=== PATIENT | female | born 1950 | race Hispanic/Latino ===

== ENCOUNTER → 2017-05-14 | Outpatient (CLI) | payer OTHER ==
[2017-05-14 07:41] LABS: HEMATOCRIT 37.8 % (36-48); LYMPHOCYTES % (AUTO) 26.2 % (21.0-51.0); MEAN CORPUSCULAR HEMOGLOBIN 31.3 pg (27.0-33.0); MEAN CORPUSCULAR HGB CONC 33.6 g/dL (32.0-36.0); MEAN CORPUSCULAR VOLUME 93.1 fL (79-99); MONOCYTES % (AUTO) 6.7 % (3.0-13.0); NEUTROPHILS % (AUTO) 63.1 % (40.0-77.0); PLATELET COUNT (AUTO) 281 K/uL (130-400); RED BLOOD CELL COUNT(AUTO) 4.06 MIL/uL (4.00-5.50); RED CELL DISTRIBUTION WIDTH 13.8 % (11.0-15.5); WHITE BLOOD COUNT (AUTO) 9.2 K/uL (4.8-10.8)
[2017-05-14 07:50] LABS: HEMOGLOBIN A1C 5.8 % (4.0-6.0)
[2017-05-14 08:04] LABS: ALBUMIN 3.6 g/dL (3.5-5.0); BILIRUBIN,TOTAL 0.3 mg/dL (0.2-1.0); CREATININE 0.7 mg/dL (0.5-1.5); THYROID STIMULATING HORMONE 2.27 uIU/mL (0.36-3.74); TOTAL PROTEIN, SERUM 7.7 g/dL (6.0-8.3)
== END | disposition home or self-care (01) ==
LOC: LAB 07:10
PROVIDERS: ATTEND Internal Medicine Nephrology
DX: I10 Essential (primary) hypertension (principal); E78.5 Hyperlipidemia, unspecified; D64.9 Anemia, unspecified; R73.09 Other abnormal glucose
CPT/HCPCS: 36415; 80053; 80061; 83036; 84443; 85025

== ENCOUNTER 2017-06-20 07:02 | Emergency (ER) | payer OTHER ==
[2017-06-20 08:10] LABS: BASOPHILS % (AUTO) 0.2 % (0.0-5.0); EOSINOPHILS % (AUTO) 0.9 % (0.0-8.0); HEMATOCRIT 38.7 % (36-48); LYMPHOCYTES % (AUTO) 4.6 % (21.0-51.0); MEAN CORPUSCULAR HEMOGLOBIN 31.6 pg (27.0-33.0); MEAN CORPUSCULAR HGB CONC 34.2 g/dL (32.0-36.0); MEAN CORPUSCULAR VOLUME 92.3 fL (79-99); NEUTROPHILS % (AUTO) 91.3 % (40.0-77.0); PLATELET COUNT (AUTO) 292 K/uL (130-400); RED BLOOD CELL COUNT(AUTO) 4.19 MIL/uL (4.00-5.50); RED CELL DISTRIBUTION WIDTH 13.5 % (11.0-15.5); WHITE BLOOD COUNT (AUTO) 15.8 K/uL (4.8-10.8)
[2017-06-20 08:17] LABS: CREATININE 0.7 mg/dL (0.5-1.5); POTASSIUM 4.3 mmol/L (3.5-5.1)
[2017-06-20 08:23] LABS: ALBUMIN 3.7 g/dL (3.5-5.0); BILIRUBIN,TOTAL 0.4 mg/dL (0.2-1.0); TOTAL PROTEIN, SERUM 8.1 g/dL (6.0-8.3)
[2017-06-20 08:39] LABS: APPEARANCE,URINE Cloudy (CLEAR); BILIRUBIN,URINE Negative (NEGATIVE); COLOR,URINE Yellow (YELLOW); GLUCOSE, URINE (UA) Negative (NEGATIVE); KETONES,URINE Negative (NEGATIVE); LEUKOCYTE ESTERASE ,URINE Moderate (NEGATIVE); NITRATE,URINE Negative (NEGATIVE); OCCULT BLOOD,URINE Small (NEGATIVE); PH,URINE 5.5 (5.0-8.0); PROTEIN,URINE Trace (NEGATIVE)
[2017-06-20 08:43] LABS: BACTERIA,URINE Few /HPF (None Seen); RBC,URINE 0-1 /HPF (0-1)
[2017-06-20 08:44] LABS: SQUAMOUS EPITHELIAL CELL,UR Few /LPF (0-2)
[2017-06-20] MEDS ORDERED: LEVOFLOXACIN 500 MG TABLET ONE (09:27)
== END 2017-06-20 09:45 | disposition home or self-care (01) ==
LOC: EDH 07:02
DX: A09 Infectious gastroenteritis and colitis, unspecified (principal); N39.0 Urinary tract infection, site not specified; I10 Essential (primary) hypertension
CPT/HCPCS: 36415; 80053; 81001; 82270; 85025; 87046; 87088; 87177; 87205; 87804

== ENCOUNTER → 2017-09-03 | Outpatient (CLI) | payer OTHER ==
[2017-09-03 08:20] LABS: BASOPHILS % (AUTO) 1.2 % (0.0-5.0); EOSINOPHILS % (AUTO) 3.6 % (0.0-8.0); HEMATOCRIT 36.1 % (36-48); LYMPHOCYTES % (AUTO) 27.6 % (21.0-51.0); MEAN CORPUSCULAR HEMOGLOBIN 31.9 pg (27.0-33.0); MEAN CORPUSCULAR HGB CONC 34.5 g/dL (32.0-36.0); MEAN CORPUSCULAR VOLUME 92.4 fL (79-99); MONOCYTES % (AUTO) 8.9 % (3.0-13.0); NEUTROPHILS % (AUTO) 58.7 % (40.0-77.0); PLATELET COUNT (AUTO) 293 K/uL (130-400); WHITE BLOOD COUNT (AUTO) 6.9 K/uL (4.8-10.8)
[2017-09-03 08:36] LABS: HEMOGLOBIN A1C 5.7 % (4.0-6.0)
[2017-09-03 08:45] LABS: ALBUMIN 3.6 g/dL (3.5-5.0); BILIRUBIN,TOTAL 0.4 mg/dL (0.2-1.0); CREATININE 0.6 mg/dL (0.5-1.5); POTASSIUM 4.1 mmol/L (3.5-5.1); THYROID STIMULATING HORMONE 2.01 uIU/mL (0.36-3.74); TOTAL PROTEIN, SERUM 7.8 g/dL (6.0-8.3)
== END | disposition home or self-care (01) ==
LOC: LAB 07:22
PROVIDERS: ATTEND Internal Medicine Nephrology
DX: I10 Essential (primary) hypertension (principal); E78.5 Hyperlipidemia, unspecified; D64.9 Anemia, unspecified; E55.9 Vitamin D deficiency, unspecified; R73.09 Other abnormal glucose
CPT/HCPCS: 36415; 80053; 80061; 82306; 83036; 84443; 85025

== ENCOUNTER 2018-01-04 17:51 | Inpatient (IN) | payer OTHER, MEDICARE ==
[~2018-01-04] VITALS: Ht 152.4 cm; Wt 71.4 kg
[2018-01-04] MEDS ORDERED: LEVOFLOXACIN 750 MG/D5W 150 ML 150 ML ONE (18:56)
[2018-01-04] MEDS ORDERED: PREDNISONE 20 MG TABLET ONE (18:56)
[2018-01-04] MEDS ORDERED: METHYLPREDNISOLONE SOD SUCC 125MG/2ML VIAL ONE (18:56)
[2018-01-04] MEDS ORDERED: IPRATROPIUM/ALBUTEROL SULFATE 3 ML SOLUTION IH ONE (18:57)
[2018-01-04 19:24] LABS: CREATININE 0.8 mg/dL (0.5-1.5)
[2018-01-04 19:25] LABS: EOSINOPHILS % (AUTO) 4.4 % (0.0-8.0); HEMATOCRIT 39.8 % (36-48); LYMPHOCYTES % (AUTO) 22.2 % (21.0-51.0); MEAN CORPUSCULAR HEMOGLOBIN 31.3 pg (27.0-33.0); MEAN CORPUSCULAR HGB CONC 33.4 g/dL (32.0-36.0); MEAN CORPUSCULAR VOLUME 93.8 fL (79-99); MONOCYTES % (AUTO) 7.4 % (3.0-13.0); NUCLEATED RED BLOOD CELLS 0.1 % (0.0-0.19); PLATELET COUNT (AUTO) 264 K/uL (130-400); RED BLOOD CELL COUNT(AUTO) 4.24 MIL/uL (4.00-5.50); WHITE BLOOD COUNT (AUTO) 10.2 K/uL (4.8-10.8)
[2018-01-04] MEDS ORDERED: ALBUTEROL SULFATE 0.083% 2.5 MG/3 ML INH IH ONE (20:48)
[2018-01-04 23:00] VITALS: BP 149/63
[2018-01-05] MEDS: LEVOFLOXACIN 500 MG/D5W 100 ML 100 ML IV SCH (02:30)
[2018-01-05] MEDS ORDERED: IPRATROPIUM/ALBUTEROL SULFATE 3 ML SOLUTION IH ONE (03:11)
[2018-01-05] MEDS ORDERED: SODIUM CHLORIDE 3% FOR INHALATION 4 ML/AMP VIAL.NEB IH ONE (03:12)
[2018-01-05 03:52] VITALS: BP 140/53
[2018-01-05 05:53] LABS: HEMATOCRIT 37.2 % (36-48); MEAN CORPUSCULAR HGB CONC 33.9 g/dL (32.0-36.0); MEAN CORPUSCULAR VOLUME 94.3 fL (79-99); PLATELET COUNT (AUTO) 303 K/uL (130-400); RED BLOOD CELL COUNT(AUTO) 3.95 MIL/uL (4.00-5.50); RED CELL DISTRIBUTION WIDTH 13.6 % (11.0-15.5); WHITE BLOOD COUNT (AUTO) 10.7 K/uL (4.8-10.8)
[2018-01-05 06:11] LABS: CREATININE 1.2 mg/dL (0.5-1.5); POTASSIUM 3.8 mmol/L (3.5-5.1)
[2018-01-05] MEDS: IPRATROPIUM/ALBUTEROL SULFATE 3 ML SOLUTION IH SCH ×5 (06:20→23:46)
[2018-01-05 07:00] VITALS: BP 146/65
[2018-01-05] MEDS: PANTOPRAZOLE SODIUM 40 MG TABLET.DR PO SCH (08:20)
[2018-01-05] MEDS: METHYLPREDNISOLONE SOD SUCC 40MG/ML 1ML IVP SCH ×2 (08:20→20:01)
[2018-01-05] MEDS: ENOXAPARIN SODIUM 30 MG/0.3 ML SQ SCH (08:21)
[2018-01-05] MEDS ORDERED: PREDNISONE 20 MG TABLET PO SCH (09:00)
[2018-01-05] MEDS: BUDESONIDE 0.25 MG/2 ML INH IH SCH ×2 (09:10→19:03)
[2018-01-05 11:00] VITALS: BP 150/103
[2018-01-05] MEDS ORDERED: METO-391 PO (11:36)
[2018-01-05] MEDS ORDERED: ASPI-1197 PO (11:41)
[2018-01-05] MEDS ORDERED: AMLO10TA6 PO (11:41)
[2018-01-05] MEDS ORDERED: OMEG-148 PO (11:41)
[2018-01-05] MEDS ORDERED: CHOL100046 PO (11:41)
[2018-01-05] MEDS ORDERED: LOSA50TA2 PO (11:41)
[2018-01-05 20:00] VITALS: BP 130/64
[2018-01-05] MEDS ORDERED: GLUCAGON 1MG KIT 1 MG ML IM PRN (21:00)
[2018-01-05] MEDS ORDERED: DEXTROSE 50%-WATER 50 ML DISP.SYRIN IV PRN (21:00)
[2018-01-05] MEDS ORDERED: GUAIFENESIN-CODEINE 5 ML SYRUP PO PRN (21:30)
[2018-01-05] MEDS: INSULIN HUMULIN R 100 UNIT/ML 3ML SQ SCH (21:33)
[2018-01-05] MEDS: FISH OIL 1000 MG/CAP PO SCH (21:40)
[2018-01-06] VITALS: BP 132/70
[2018-01-06] MEDS: LEVOFLOXACIN 500 MG/D5W 100 ML 100 ML IV SCH (02:36)
[2018-01-06 04:00] VITALS: BP 132/58
[2018-01-06] MEDS: INSULIN HUMULIN R 100 UNIT/ML 3ML SQ SCH (06:05)
[2018-01-06] MEDS: IPRATROPIUM/ALBUTEROL SULFATE 3 ML SOLUTION IH SCH (06:32)
[2018-01-06] MEDS: BUDESONIDE 0.25 MG/2 ML INH IH SCH (07:01)
[2018-01-06 08:00] VITALS: BP 163/60
[2018-01-06] MEDS: PNEUMOCOCCAL VACCINE POLYVALENT 0.5 ML/VIAL [PPV] IM SCH ×2 (08:15→08:33)
[2018-01-06] MEDS: METHYLPREDNISOLONE SOD SUCC 40MG/ML 1ML IVP SCH (08:30)
[2018-01-06] MEDS: FISH OIL 1000 MG/CAP PO SCH (08:30)
[2018-01-06] MEDS: PANTOPRAZOLE SODIUM 40 MG TABLET.DR PO SCH (08:30)
[2018-01-06] MEDS ORDERED: LOSARTAN 50 MG TABLET PO SCH (09:00)
[2018-01-06] MEDS ORDERED: ASPIRIN 81MG TAB.CHEW PO SCH (09:00)
[2018-01-06] MEDS ORDERED: METOPROLOL TARTRATE 50 MG TAB PO SCH (09:00)
[2018-01-06] MEDS ORDERED: AMLODIPINE BESYLATE 5 MG TAB PO SCH (09:00)
[2018-01-06] MEDS: ENOXAPARIN SODIUM 30 MG/0.3 ML SQ SCH (09:00)
[2018-01-06] MEDS ORDERED: **HM**Cholecalciferol (Vitamin D3) (Vitamin D) 1,000 UNIT PO SCH (09:00)
== END 2018-01-06 10:54 | disposition home or self-care (01) | DRG 202 ==
LOC: EDH 17:51 → EDHIP 21:30 → 3CH 22:33
PROVIDERS: ADMIT Internal Medicine Nephrology; ATTEND Internal Medicine Nephrology
PROC: 3E0234Z Introduction of Serum, Toxoid and Vaccine into Muscle, Percutaneous Approach (ICD-10-PCS; principal; 2018-01-04)
DX: J20.9 Acute bronchitis, unspecified (principal); J45.901 Unspecified asthma with (acute) exacerbation; Z68.30 Body mass index [BMI] 30.0-30.9, adult; E66.9 Obesity, unspecified; E78.5 Hyperlipidemia, unspecified; R73.9 Hyperglycemia, unspecified; Z91.018 Allergy to other foods; I10 Essential (primary) hypertension; Z23 Encounter for immunization; Z90.710 Acquired absence of both cervix and uterus; Z82.3 Family history of stroke; Z83.3 Family history of diabetes mellitus; Z82.49 Family history of ischemic heart disease and other diseases of the circulatory system; Z82.5 Family history of asthma and other chronic lower respiratory diseases
CPT/HCPCS: 36415; 71045; 80048; 82550; 82948; 84484; 85025; 85027; 87071; 87205; 87804; 90732; 93005; 94640; 94664; G0008; G0009; J1650; J1815; J1956; J2920; J2930; Q2038

== ENCOUNTER 2018-01-12 11:32 | Inpatient (IN) | payer OTHER, MEDICARE ==
[~2018-01-12] VITALS: Ht 152.4 cm; Wt 80.6 kg
[~2018-01-12 11:32] MED LIST: AMLO10TA6 PO; ASPI-1197 PO; CHOL100046 PO; LOSA50TA2 PO; METO-391 PO; OMEG-148 PO
[2018-01-12 12:30] LABS: BASOPHILS % (AUTO) 0.3 % (0.0-5.0); EOSINOPHILS % (AUTO) 4.6 % (0.0-8.0); HEMATOCRIT 41.6 % (36-48); LYMPHOCYTES % (AUTO) 19.6 % (21.0-51.0); MEAN CORPUSCULAR HEMOGLOBIN 31.2 pg (27.0-33.0); MEAN CORPUSCULAR HGB CONC 33.1 g/dL (32.0-36.0); MEAN CORPUSCULAR VOLUME 94.2 fL (79-99); MONOCYTES % (AUTO) 5.4 % (3.0-13.0); NEUTROPHILS % (AUTO) 70.1 % (40.0-77.0); PLATELET COUNT (AUTO) 337 K/uL (130-400); RED BLOOD CELL COUNT(AUTO) 4.41 MIL/uL (4.00-5.50); WHITE BLOOD COUNT (AUTO) 18.9 K/uL (4.8-10.8)
[2018-01-12 12:38] LABS: CREATININE 0.8 mg/dL (0.5-1.5); POTASSIUM 3.7 mmol/L (3.5-5.1)
[2018-01-12 12:46] LABS: ALBUMIN 3.1 g/dL (3.5-5.0); BILIRUBIN,TOTAL 0.4 mg/dL (0.2-1.0); TOTAL PROTEIN, SERUM 7.3 g/dL (6.0-8.3)
[2018-01-12] MEDS ORDERED: LEVOFLOXACIN 500 MG/D5W 100 ML 100 ML ONE (12:48)
[2018-01-12] MEDS ORDERED: METHYLPREDNISOLONE SOD SUCC 40MG/ML 1ML ONE (12:48)
[2018-01-12] MEDS ORDERED: IPRATROPIUM/ALBUTEROL SULFATE 3 ML SOLUTION IH ONE (13:14)
[2018-01-12 16:00] VITALS: BP 150/77
[2018-01-12] MEDS ORDERED: GUAIFENESIN-DM 200/20 MG 10 ML PO PRN (16:00)
[2018-01-12] MEDS ORDERED: ONDANSETRON HCL 4 MG/2 ML VIAL IVP PRN (16:00)
[2018-01-12] MEDS ORDERED: DiphenhydrAMINE HCL 50 MG/ML VIAL IVP PRN (16:00)
[2018-01-12] MEDS ORDERED: ACETAMINOPHEN 325 MG TAB PO PRN (16:00)
[2018-01-12] MEDS: SODIUM CHLORIDE 0.9% 1000ML 1,000 ML IV SCH (17:00)
[2018-01-12] MEDS: ZOSYN 3.375GM+NS 50ML 50 ML IV SCH (17:00)
[2018-01-12] MEDS: GUAIFENESIN SUGAR-FREE 100 MG/5 ML UDCUP PO PRN (17:52)
[2018-01-12] MEDS: INSULIN R PO SS1 SQ SCH ×2 (17:56→20:53)
[2018-01-12] MEDS: IPRATROPIUM/ALBUTEROL SULFATE 3 ML SOLUTION IH SCH ×2 (18:28→23:29)
[2018-01-12] MEDS: BUDESONIDE 0.5 MG/2 ML INH IH SCH (18:47)
[2018-01-12] MEDS ORDERED: ALBU8.5H8 IH (19:15)
[2018-01-12] MEDS ORDERED: FISH1CAP65 PO (19:15)
[2018-01-12] MEDS ORDERED: CHOL200074 PO (19:15)
[2018-01-12] MEDS ORDERED: CALC-1115 PO (19:15)
[2018-01-12 19:30] VITALS: BP 148/79
[2018-01-12] MEDS: FAMOTIDINE 20MG TAB 20 MG TAB PO SCH (20:50)
[2018-01-12 23:52] VITALS: BP 151/54
[2018-01-13] MEDS: METHYLPREDNISOLONE SOD SUCC 40MG/ML 1ML IVP SCH ×3 (00:31→23:51)
[2018-01-13] MEDS: ZOSYN 3.375GM+NS 50ML 50 ML IV SCH ×2 (00:31→09:04)
[2018-01-13] MEDS: GUAIFENESIN SUGAR-FREE 100 MG/5 ML UDCUP PO PRN ×2 (00:35→21:02)
[2018-01-13 03:45] VITALS: BP 153/71
[2018-01-13] MEDS: SODIUM CHLORIDE 0.9% 1000ML 1,000 ML IV SCH ×2 (04:24→23:54)
[2018-01-13] MEDS: BUDESONIDE 0.5 MG/2 ML INH IH SCH ×2 (06:11→18:44)
[2018-01-13] MEDS: IPRATROPIUM/ALBUTEROL SULFATE 3 ML SOLUTION IH SCH ×4 (06:11→23:10)
[2018-01-13] MEDS: INSULIN R PO SS1 SQ SCH ×3 (06:23→20:59)
[2018-01-13 08:29] VITALS: BP 137/63
[2018-01-13] MEDS: FAMOTIDINE 20MG TAB 20 MG TAB PO SCH ×2 (08:55→20:51)
[2018-01-13] MEDS: ASPIRIN 81MG TAB.CHEW PO SCH (08:55)
[2018-01-13] MEDS: LOSARTAN 50 MG TABLET PO SCH ×2 (08:56→20:52)
[2018-01-13] MEDS: AMLODIPINE BESYLATE 5 MG TAB PO SCH (08:56)
[2018-01-13] MEDS: CALCIUM 600 + VITAMIN D 400 TABLET PO SCH (08:56)
[2018-01-13] MEDS: FISH OIL 1000 MG/CAP PO SCH ×2 (08:59→20:52)
[2018-01-13] MEDS: Metoprolol Succinate 50 MG PO SCH ×2 (09:00→20:52)
[2018-01-13] MEDS: [UNRECOGNIZED DRUG - OTHER] PO SCH (09:00)
[2018-01-13] MEDS: Cholecalciferol (Vitamin D3) (Vitamin D) 1,000 UNIT PO SCH (09:00)
[2018-01-13] MEDS: LEVOFLOXACIN 500 MG/D5W 100 ML 100 ML IV SCH (12:10)
[2018-01-13 12:39] VITALS: BP 141/60
[2018-01-13] MEDS: GUAIFENESIN-CODEINE 5 ML SYRUP PO PRN (12:49)
[2018-01-13] MEDS: AZITHROMYCIN 500MG+NS 250ML 250 ML IV SCH (15:11)
[2018-01-13 16:00] VITALS: BP 132/61
[2018-01-13 19:25] VITALS: BP 125/55
[2018-01-13 23:34] VITALS: BP 112/51
[2018-01-14 04:23] VITALS: BP 125/65
[2018-01-14] MEDS: GUAIFENESIN SUGAR-FREE 100 MG/5 ML UDCUP PO PRN (05:11)
[2018-01-14 05:16] LABS: BASOPHILS % (AUTO) 0.3 % (0.0-5.0); HEMATOCRIT 36.8 % (36-48); LYMPHOCYTES % (AUTO) 8.3 % (21.0-51.0); MEAN CORPUSCULAR HEMOGLOBIN 31.7 pg (27.0-33.0); MEAN CORPUSCULAR HGB CONC 33.4 g/dL (32.0-36.0); MEAN CORPUSCULAR VOLUME 94.9 fL (79-99); MONOCYTES % (AUTO) 3.3 % (3.0-13.0); NEUTROPHILS % (AUTO) 88.1 % (40.0-77.0); PLATELET COUNT (AUTO) 292 K/uL (130-400); RED BLOOD CELL COUNT(AUTO) 3.88 MIL/uL (4.00-5.50); RED CELL DISTRIBUTION WIDTH 14.6 % (11.0-15.5); WHITE BLOOD COUNT (AUTO) 18.6 K/uL (4.8-10.8)
[2018-01-14 05:31] LABS: CREATININE 0.8 mg/dL (0.5-1.5)
[2018-01-14] MEDS: INSULIN R PO SS1 SQ SCH ×4 (05:34→20:57)
[2018-01-14] MEDS: IPRATROPIUM/ALBUTEROL SULFATE 3 ML SOLUTION IH SCH ×4 (06:07→23:55)
[2018-01-14] MEDS: BUDESONIDE 0.5 MG/2 ML INH IH SCH ×2 (06:07→18:06)
[2018-01-14 08:00] VITALS: BP 136/55
[2018-01-14] MEDS: SODIUM CHLORIDE 0.9% 1000ML 1,000 ML IV SCH (08:00)
[2018-01-14] MEDS: ASPIRIN 81MG TAB.CHEW PO SCH (08:26)
[2018-01-14] MEDS: FISH OIL 1000 MG/CAP PO SCH ×2 (08:26→20:47)
[2018-01-14] MEDS: LEVOFLOXACIN 500 MG/D5W 100 ML 100 ML IV SCH (08:26)
[2018-01-14] MEDS: FAMOTIDINE 20MG TAB 20 MG TAB PO SCH ×2 (08:26→20:47)
[2018-01-14] MEDS: AMLODIPINE BESYLATE 5 MG TAB PO SCH (08:27)
[2018-01-14] MEDS: CALCIUM 600 + VITAMIN D 400 TABLET PO SCH (08:27)
[2018-01-14] MEDS: LOSARTAN 50 MG TABLET PO SCH ×2 (08:27→20:47)
[2018-01-14] MEDS: GUAIFENESIN-CODEINE 5 ML SYRUP PO PRN ×3 (08:28→21:01)
[2018-01-14] MEDS: [UNRECOGNIZED DRUG - OTHER] PO SCH (09:00)
[2018-01-14] MEDS: Cholecalciferol (Vitamin D3) (Vitamin D) 1,000 UNIT PO SCH (09:00)
[2018-01-14] MEDS: Metoprolol Succinate 50 MG PO SCH ×2 (09:00→20:48)
[2018-01-14 11:00] VITALS: BP 136/60
[2018-01-14] MEDS: AZITHROMYCIN 500MG+NS 250ML 250 ML IV SCH (13:57)
[2018-01-14] MEDS: METHYLPREDNISOLONE SOD SUCC 40MG/ML 1ML IVP SCH ×2 (13:57→23:59)
[2018-01-14 16:00] VITALS: BP 129/62
[2018-01-14 19:00] VITALS: BP 129/55
[2018-01-15] VITALS: BP 122/56
[2018-01-15 04:00] VITALS: BP 133/70
[2018-01-15 07:00] VITALS: BP 147/84
[2018-01-15] MEDS: IPRATROPIUM/ALBUTEROL SULFATE 3 ML SOLUTION IH SCH ×4 (07:18→23:34)
[2018-01-15] MEDS: BUDESONIDE 0.5 MG/2 ML INH IH SCH ×2 (07:19→18:42)
[2018-01-15] MEDS: INSULIN R PO SS1 SQ SCH ×4 (07:30→21:49)
[2018-01-15] MEDS: GUAIFENESIN-CODEINE 5 ML SYRUP PO PRN (08:59)
[2018-01-15] MEDS: [UNRECOGNIZED DRUG - OTHER] PO SCH (09:00)
[2018-01-15] MEDS: AMLODIPINE BESYLATE 5 MG TAB PO SCH (09:47)
[2018-01-15] MEDS: LEVOFLOXACIN 500 MG/D5W 100 ML 100 ML IV SCH (09:47)
[2018-01-15] MEDS: LOSARTAN 50 MG TABLET PO SCH ×2 (09:47→21:52)
[2018-01-15] MEDS: Cholecalciferol (Vitamin D3) (Vitamin D) 1,000 UNIT PO SCH (09:48)
[2018-01-15] MEDS: CALCIUM 600 + VITAMIN D 400 TABLET PO SCH (09:48)
[2018-01-15] MEDS: FISH OIL 1000 MG/CAP PO SCH ×2 (09:48→21:52)
[2018-01-15] MEDS: FAMOTIDINE 20MG TAB 20 MG TAB PO SCH ×2 (09:48→21:52)
[2018-01-15] MEDS: ASPIRIN 81MG TAB.CHEW PO SCH (09:48)
[2018-01-15] MEDS: Metoprolol Succinate 50 MG PO SCH ×2 (09:50→21:54)
[2018-01-15 11:00] VITALS: BP 165/79
[2018-01-15] MEDS: METHYLPREDNISOLONE SOD SUCC 40MG/ML 1ML IVP SCH (13:33)
[2018-01-15 16:00] VITALS: BP 137/82
[2018-01-15 19:00] VITALS: BP 135/71
[2018-01-16] VITALS (7 sets, daily range): BP systolic 124–157; BP diastolic 57–78
[2018-01-16] MEDS: METHYLPREDNISOLONE SOD SUCC 40MG/ML 1ML IVP SCH ×2 (00:30→11:50)
[2018-01-16 04:59] LABS: HEMATOCRIT 39.1 % (36-48); LYMPHOCYTES % (AUTO) 9.5 % (21.0-51.0); MEAN CORPUSCULAR HEMOGLOBIN 31.4 pg (27.0-33.0); MEAN CORPUSCULAR HGB CONC 33.3 g/dL (32.0-36.0); MEAN CORPUSCULAR VOLUME 94.3 fL (79-99); MONOCYTES % (AUTO) 2.5 % (3.0-13.0); PLATELET COUNT (AUTO) 284 K/uL (130-400); RED BLOOD CELL COUNT(AUTO) 4.14 MIL/uL (4.00-5.50); RED CELL DISTRIBUTION WIDTH 14.3 % (11.0-15.5); WHITE BLOOD COUNT (AUTO) 17.5 K/uL (4.8-10.8)
[2018-01-16 05:08] LABS: CREATININE 0.7 mg/dL (0.5-1.5); POTASSIUM 4.1 mmol/L (3.5-5.1)
[2018-01-16] MEDS: INSULIN R PO SS1 SQ SCH ×4 (05:57→22:43)
[2018-01-16] MEDS: IPRATROPIUM/ALBUTEROL SULFATE 3 ML SOLUTION IH SCH ×3 (06:27→18:02)
[2018-01-16] MEDS: BUDESONIDE 0.5 MG/2 ML INH IH SCH ×2 (06:27→18:02)
[2018-01-16] MEDS: Cholecalciferol (Vitamin D3) (Vitamin D) 1,000 UNIT PO SCH (09:00)
[2018-01-16] MEDS: [UNRECOGNIZED DRUG - OTHER] PO SCH (09:00)
[2018-01-16] MEDS: Metoprolol Succinate 50 MG PO SCH ×2 (09:00→21:00)
[2018-01-16] MEDS: LEVOFLOXACIN 500 MG/D5W 100 ML 100 ML IV SCH (10:26)
[2018-01-16] MEDS: FAMOTIDINE 20MG TAB 20 MG TAB PO SCH ×2 (10:26→22:34)
[2018-01-16] MEDS: LOSARTAN 50 MG TABLET PO SCH ×2 (10:26→22:34)
[2018-01-16] MEDS: CALCIUM 600 + VITAMIN D 400 TABLET PO SCH (10:26)
[2018-01-16] MEDS: FISH OIL 1000 MG/CAP PO SCH ×2 (10:27→22:34)
[2018-01-16] MEDS: ASPIRIN 81MG TAB.CHEW PO SCH (10:27)
[2018-01-16] MEDS: AMLODIPINE BESYLATE 5 MG TAB PO SCH (10:32)
[2018-01-16] MEDS: GUAIFENESIN SUGAR-FREE 100 MG/5 ML UDCUP PO PRN (13:18)
[2018-01-16] MEDS: GUAIFENESIN-CODEINE 5 ML SYRUP PO PRN (22:46)
[2018-01-17] MEDS: METHYLPREDNISOLONE SOD SUCC 40MG/ML 1ML IVP SCH ×2 (00:20→12:04)
[2018-01-17] MEDS: IPRATROPIUM/ALBUTEROL SULFATE 3 ML SOLUTION IH SCH ×4 (00:22→18:51)
[2018-01-17 04:09] VITALS: BP 128/62
[2018-01-17] MEDS: INSULIN R PO SS1 SQ SCH ×2 (06:11→11:30)
[2018-01-17] MEDS: BUDESONIDE 0.5 MG/2 ML INH IH SCH ×2 (06:39→18:52)
[2018-01-17 07:15] VITALS: BP 173/78
[2018-01-17] MEDS: LOSARTAN 50 MG TABLET PO SCH (09:41)
[2018-01-17] MEDS: ASPIRIN 81MG TAB.CHEW PO SCH (09:41)
[2018-01-17] MEDS: CALCIUM 600 + VITAMIN D 400 TABLET PO SCH (09:41)
[2018-01-17] MEDS: AMLODIPINE BESYLATE 5 MG TAB PO SCH (09:41)
[2018-01-17] MEDS: LEVOFLOXACIN 500 MG/D5W 100 ML 100 ML IV SCH (09:41)
[2018-01-17] MEDS: FAMOTIDINE 20MG TAB 20 MG TAB PO SCH (09:42)
[2018-01-17] MEDS: FISH OIL 1000 MG/CAP PO SCH (09:42)
[2018-01-17] MEDS: Metoprolol Succinate 50 MG PO SCH (09:43)
[2018-01-17] MEDS: [UNRECOGNIZED DRUG - OTHER] PO SCH (09:44)
[2018-01-17] MEDS: Cholecalciferol (Vitamin D3) (Vitamin D) 1,000 UNIT PO SCH (09:51)
[2018-01-17] MEDS: GUAIFENESIN-CODEINE 5 ML SYRUP PO PRN ×2 (10:00→20:18)
[2018-01-17 12:03] VITALS: BP 124/54
[2018-01-17 17:07] VITALS: BP 160/91
[2018-01-17] MEDS: GUAIFENESIN SUGAR-FREE 100 MG/5 ML UDCUP PO PRN (20:19)
== END 2018-01-17 20:25 | disposition home or self-care (01) | DRG 202 ==
LOC: EDH 11:32 → EDHIP 12:14 → 3AH 15:20
PROVIDERS: ADMIT Internal Medicine Nephrology; ATTEND Internal Medicine Nephrology
DX: J20.9 Acute bronchitis, unspecified (principal); J45.901 Unspecified asthma with (acute) exacerbation; E66.9 Obesity, unspecified; Z68.34 Body mass index [BMI] 34.0-34.9, adult; E78.5 Hyperlipidemia, unspecified; I10 Essential (primary) hypertension; R73.9 Hyperglycemia, unspecified; H91.90 Unspecified hearing loss, unspecified ear; M81.0 Age-related osteoporosis without current pathological fracture; R73.03 Prediabetes; Z90.710 Acquired absence of both cervix and uterus; Z91.018 Allergy to other foods; Z82.3 Family history of stroke
CPT/HCPCS: 36415; 71250; 80048; 80053; 82948; 85025; 87040; 87071; 87205; 87633; 93306; 94010; 94640; 94664; J0456; J1815; J1956; J2543; J2920; J7030

== ENCOUNTER → 2018-05-06 | Outpatient (CLI) | payer MEDICARE ==
[~2018-05-06] MED LIST changes: +ALBU8.5H8 IH; -AMLO10TA6 PO; +AMLO10TA7 PO; +CALC-1115 PO; +CHOL200074 PO; +FISH1CAP65 PO
== END | disposition home or self-care (01) ==
LOC: RAH 10:00
PROVIDERS: ATTEND Internal Medicine Nephrology
DX: Z12.31 Encounter for screening mammogram for malignant neoplasm of breast (principal)
CPT/HCPCS: 77067

== ENCOUNTER → 2019-05-11 | Outpatient (CLI) | payer MEDICARE ==
[~2019-05-11] MED LIST changes: -CALC-1115 PO; +CALC-1205 PO
== END | disposition home or self-care (01) ==
LOC: RAH 14:58
PROVIDERS: ATTEND Internal Medicine Nephrology
DX: Z12.31 Encounter for screening mammogram for malignant neoplasm of breast (principal)
CPT/HCPCS: 77067

== ENCOUNTER 2019-09-07 00:03 | Inpatient (IN) | payer MEDICARE ==
[~2019-09-07] VITALS: Ht 152.4 cm; Wt 81.9 kg
[~2019-09-07 00:03] MED LIST changes: +AMLO-258 PO; -AMLO10TA7 PO
[2019-09-07] MEDS ORDERED: METHYLPREDNISOLONE SOD SUCC 125MG/2ML VIAL ONE (00:40)
[2019-09-07] MEDS ORDERED: IPRATROPIUM 0.5 MG/2.5 ML INH IH ONE (00:46)
[2019-09-07 00:51] LABS: BASOPHILS % (AUTO) 0.9 % (0.0-5.0); EOSINOPHILS % (AUTO) 5.2 % (0.0-8.0); HEMATOCRIT 37.4 % (36-48); LYMPHOCYTES % (AUTO) 32.9 % (21.0-51.0); MEAN CORPUSCULAR HEMOGLOBIN 30.8 pg (27.0-33.0); MEAN CORPUSCULAR HGB CONC 32.9 g/dL (32.0-36.0); MEAN CORPUSCULAR VOLUME 93.5 fL (79-99); MONOCYTES % (AUTO) 7.5 % (3.0-13.0); NEUTROPHILS % (AUTO) 53.3 % (40.0-77.0); PLATELET COUNT (AUTO) 273 K/uL (130-400); RED CELL DISTRIBUTION WIDTH 13.1 % (11.0-15.5); WHITE BLOOD COUNT (AUTO) 8.1 K/uL (4.8-10.8)
[2019-09-07 00:55] LABS: CREATININE 0.8 mg/dL (0.5-1.5); POTASSIUM 4.2 mmol/L (3.5-5.1)
[2019-09-07 01:01] LABS: ALBUMIN 3.7 g/dL (3.5-5.0); BILIRUBIN,TOTAL 0.3 mg/dL (0.2-1.0); TOTAL PROTEIN, SERUM 7.7 g/dL (6.0-8.3)
[2019-09-07 01:17] LABS: B-TYPE NATRIURETIC PEPTIDE 57 pg/mL (0-100)
[2019-09-07] MEDS ORDERED: LEVOFLOXACIN 500 MG/D5W 100 ML 100 ML ONE (05:04)
[2019-09-07] MEDS ORDERED: ACETAMINOPHEN 325 MG TAB PO PRN (05:30)
[2019-09-07] MEDS ORDERED: GABA-529 PO (05:45)
[2019-09-07] MEDS ORDERED: OMEP20CA12 PO (05:45)
[2019-09-07 05:48] VITALS: BP 140/57
--- NOTE | 2019-09-07 05:48 | NUR ---
ADMIT Admitted from ER,aao x3,on room air,denies pain or sob.Admission care rendered.
[2019-09-07] MEDS: IPRATROPIUM/ALBUTEROL SULFATE 3 ML SOLUTION IH SCH ×3 (06:37→21:08)
[2019-09-07] MEDS: BUDESONIDE 0.5 MG/2 ML INH IH SCH ×2 (06:37→18:58)
--- NOTE | 2019-09-07 06:57 | NUR ---
MD Dr BETZY Landis came to see pt.
[2019-09-07 07:27] VITALS: BP 158/69
[2019-09-07] MEDS ORDERED: PNEUMOCOCCAL VACCINE POLYVALENT 0.5 ML/VIAL [PPV] IM ONE (09:00)
[2019-09-07] MEDS: FAMOTIDINE 20MG TAB 20 MG TAB PO SCH (09:33)
[2019-09-07] MEDS: METOPROLOL SUCCINATE 50 MG TAB.SR.24H PO SCH ×2 (09:41→20:09)
[2019-09-07] MEDS: LOSARTAN 50 MG TABLET PO SCH ×2 (09:41→20:08)
[2019-09-07] MEDS: HEPARIN SODIUM 5000UNIT/ML 1ML VIAL SQ SCH ×2 (09:41→20:07)
[2019-09-07] MEDS: CALCIUM 600 + VITAMIN D 400 TABLET PO SCH (09:41)
[2019-09-07] MEDS: FISH OIL 1000 MG/CAP PO SCH (09:42)
[2019-09-07] MEDS: ASPIRIN 81MG TAB.CHEW PO SCH (09:42)
[2019-09-07] MEDS: AMLODIPINE BESYLATE 5 MG TAB PO SCH (09:42)
[2019-09-07 10:41] VITALS: BP 157/80
[2019-09-07] MEDS: METHYLPREDNISOLONE SOD SUCC 40MG/ML 1ML IVP SCH (11:31)
--- NOTE | 2019-09-07 14:19 | NUR ---
NUTRITION EDUCATION RD provided Pre-Diabetes Nutrition education via phone due to isolation protocol. Educational handouts left in Pt chart. Pt notified. Pt verbalized understanding. RD encouraged Pt to notify as questions or concerns arise. Addendum: 09/07/19 at [address] Amended: Links added.
--- NOTE | 2019-09-07 14:25 | NUR ---
RD NOTIFICATION - TRIGGER/NUTRITION EDUCATION Pt admitted for acute Asthma Exacerbation.Pt tolerating 75gm CCD with no report of GI distress, Pt reports fair appetite at 50-75%. RD provided nutrition education. Interview conducted via phone. Educational materials placed in Pt chart. Recommend continue 75gmCCD RD to continue to monitor. Please notify as additional nutrition concerns arise. Thank you. Addendum: 09/07/19 at [address] Amended: Links added.
[2019-09-07 15:14] VITALS: BP 132/59
[2019-09-07 20:00] VITALS: BP 151/62
[2019-09-07] MEDS: GUAIFENESIN-CODEINE 5 ML SYRUP PO PRN (20:08)
--- NOTE | 2019-09-07 20:08 | NUR ---
MEDS Pt refused Pneumonia vaccine for now,states she will ask the doctor about it. Medicated for cough,refer to madhuri amaay.
[2019-09-07] MEDS: GABAPENTIN 100 MG CAPSULE PO SCH (20:09)
[2019-09-07 23:13] VITALS: BP 133/60
[2019-09-08] MEDS: METHYLPREDNISOLONE SOD SUCC 40MG/ML 1ML IVP SCH ×3 (00:23→23:07)
[2019-09-08 03:19] VITALS: BP 138/56
[2019-09-08] MEDS: LEVOFLOXACIN 500 MG/D5W 100 ML 100 ML IV SCH (04:48)
[2019-09-08 06:14] LABS: HEMATOCRIT 35.6 % (36-48); MEAN CORPUSCULAR HEMOGLOBIN 29.7 pg (27.0-33.0); MEAN CORPUSCULAR HGB CONC 31.7 g/dL (32.0-36.0); MEAN CORPUSCULAR VOLUME 93.4 fL (79-99); RED BLOOD CELL COUNT(AUTO) 3.81 MIL/uL (4.00-5.50); RED CELL DISTRIBUTION WIDTH 13.7 % (11.0-15.5); WHITE BLOOD COUNT (AUTO) 12.7 K/uL (4.8-10.8)
[2019-09-08 06:39] LABS: ALBUMIN 3.3 g/dL (3.5-5.0); BILIRUBIN,TOTAL 0.2 mg/dL (0.2-1.0); POTASSIUM 4.4 mmol/L (3.5-5.1); TOTAL PROTEIN, SERUM 7.3 g/dL (6.0-8.3)
[2019-09-08] MEDS: IPRATROPIUM/ALBUTEROL SULFATE 3 ML SOLUTION IH SCH ×3 (06:47→22:37)
[2019-09-08] MEDS: BUDESONIDE 0.5 MG/2 ML INH IH SCH ×2 (06:57→22:50)
[2019-09-08] MEDS: INSULIN HUMULIN R 100 UNIT/ML 3ML SQ SCH ×4 (07:30→21:05)
[2019-09-08] MEDS ORDERED: DEXTROSE 50%-WATER 50 ML DISP.SYRIN IV PRN (07:30)
[2019-09-08] MEDS ORDERED: GLUCAGON 1MG KIT 1 MG ML IM PRN (07:30)
[2019-09-08 08:00] VITALS: BP 158/58
[2019-09-08] MEDS ORDERED: LEVOFLOXACIN 500 MG/D5W 100 ML 100 ML IV SCH (09:00)
[2019-09-08] MEDS: GUAIFENESIN-CODEINE 5 ML SYRUP PO PRN ×2 (09:32→16:40)
[2019-09-08] MEDS: CALCIUM 600 + VITAMIN D 400 TABLET PO SCH (09:32)
[2019-09-08] MEDS: FISH OIL 1000 MG/CAP PO SCH (09:32)
[2019-09-08] MEDS: FAMOTIDINE 20MG TAB 20 MG TAB PO SCH (09:32)
[2019-09-08] MEDS: LOSARTAN 50 MG TABLET PO SCH ×2 (09:32→20:17)
[2019-09-08] MEDS: AMLODIPINE BESYLATE 5 MG TAB PO SCH (09:33)
[2019-09-08] MEDS: METOPROLOL SUCCINATE 50 MG TAB.SR.24H PO SCH ×2 (09:33→20:18)
[2019-09-08] MEDS: ASPIRIN 81MG TAB.CHEW PO SCH (09:33)
[2019-09-08] MEDS: HEPARIN SODIUM 5000UNIT/ML 1ML VIAL SQ SCH ×2 (09:34→20:22)
[2019-09-08 12:00] VITALS: BP 159/55
[2019-09-08 16:00] VITALS: BP 144/55
[2019-09-08] MEDS ORDERED: PNEUMOCOCCAL VACCINE POLYVALENT 0.5 ML/VIAL [PPV] ONE (16:03)
[2019-09-08 19:30] VITALS: BP 148/53
[2019-09-08] MEDS: GABAPENTIN 100 MG CAPSULE PO SCH (20:17)
[2019-09-09] VITALS: BP 139/56
[2019-09-09 04:00] VITALS: BP 136/62
[2019-09-09 04:13] LABS: HEMATOCRIT 35.3 % (36-48); MEAN CORPUSCULAR HEMOGLOBIN 30.8 pg (27.0-33.0); MEAN CORPUSCULAR HGB CONC 32.9 g/dL (32.0-36.0); MEAN CORPUSCULAR VOLUME 93.6 fL (79-99); PLATELET COUNT (AUTO) 289 K/uL (130-400); RED BLOOD CELL COUNT(AUTO) 3.77 MIL/uL (4.00-5.50); RED CELL DISTRIBUTION WIDTH 13.3 % (11.0-15.5)
[2019-09-09] MEDS: LEVOFLOXACIN 500 MG/D5W 100 ML 100 ML IV SCH (05:05)
[2019-09-09 05:09] LABS: LYMPHOCYTES % (MANUAL) 12 % (22-44); MAN.DIFF COMMENT-IMPRESSION MANUAL DIFFERENTIAL; MONOCYTES % (MANUAL) 2 % (2-9); SEGMENTED NEUTROPHILS % 86 % (40-70)
[2019-09-09] MEDS: IPRATROPIUM/ALBUTEROL SULFATE 3 ML SOLUTION IH SCH (06:44)
[2019-09-09] MEDS: BUDESONIDE 0.5 MG/2 ML INH IH SCH (06:58)
[2019-09-09] MEDS: INSULIN HUMULIN R 100 UNIT/ML 3ML SQ SCH ×2 (07:05→11:30)
[2019-09-09] MEDS ORDERED: PRED20TA3 PO (07:07)
[2019-09-09] MEDS ORDERED: LEVO500T2 PO (07:07)
[2019-09-09 07:30] VITALS: BP 159/60
[2019-09-09] MEDS: LOSARTAN 50 MG TABLET PO SCH (08:34)
[2019-09-09] MEDS: CALCIUM 600 + VITAMIN D 400 TABLET PO SCH (08:34)
[2019-09-09] MEDS: FISH OIL 1000 MG/CAP PO SCH (08:34)
[2019-09-09] MEDS: FAMOTIDINE 20MG TAB 20 MG TAB PO SCH (08:34)
[2019-09-09] MEDS: ASPIRIN 81MG TAB.CHEW PO SCH (08:35)
[2019-09-09] MEDS: METOPROLOL SUCCINATE 50 MG TAB.SR.24H PO SCH (08:35)
[2019-09-09] MEDS: AMLODIPINE BESYLATE 5 MG TAB PO SCH (08:35)
[2019-09-09] MEDS: HEPARIN SODIUM 5000UNIT/ML 1ML VIAL SQ SCH (08:40)
[2019-09-09 11:00] VITALS: BP 150/66
[2019-09-09] MEDS: METHYLPREDNISOLONE SOD SUCC 40MG/ML 1ML IVP SCH (12:30)
--- NOTE | 2019-09-09 12:38 | NUR ---
PATIENT DISCHARGE PATIENT DISCHARGE, IV DISCONTINUED, CATHLON INTACT BLEEDING CONTROLLED, PATIENT TOLERATED WITHOUT INCIDENT. DISCUSSED WITH PATIENT THE FOLLOW UP APPOINTMENT SCHEDULED FOR HER WITH DR. BETZY ANAYA, ALSO, 2 PRESCRIPTIONS WERE SENT ELECTRONICALLY TO [facility] IN [place]. PATIENT UNDERSTOOD. PATIENT STATED SHE WOULD LET US KNOW WHEN HER WAS HER TO PICK HER UP.
--- NOTE | 2019-09-09 17:55 | NUR ---
CM NOTE/IA NOT DONE PATIENT DISCHARGED HOME, NO NEEDS VOICED BY NURSING STAFF. Addendum: 09/09/19 at 1755 by VAZQUEZ RINALDI RN CM Amended: Links added.
== END 2019-09-09 13:30 | disposition home or self-care (01) | DRG 202 ==
LOC: EDH 00:03 → EDHIP 04:35 → 3AH 05:03
PROVIDERS: ADMIT Internal Medicine Nephrology; ATTEND Internal Medicine Nephrology
PROC: 3E0234Z Introduction of Serum, Toxoid and Vaccine into Muscle, Percutaneous Approach (ICD-10-PCS; principal; 2019-09-07)
DX: J20.9 Acute bronchitis, unspecified (principal); J45.901 Unspecified asthma with (acute) exacerbation; I10 Essential (primary) hypertension; E78.5 Hyperlipidemia, unspecified; R73.03 Prediabetes; M81.0 Age-related osteoporosis without current pathological fracture; Z91.018 Allergy to other foods; Z90.710 Acquired absence of both cervix and uterus; Z90.49 Acquired absence of other specified parts of digestive tract; Z86.19 Personal history of other infectious and parasitic diseases; Z23 Encounter for immunization; Z82.3 Family history of stroke; Z80.51 Family history of malignant neoplasm of kidney
CPT/HCPCS: 36415; 71045; 80053; 82550; 82948; 83880; 84484; 85025; 85027; 90732; 93005; 94640; 94664; G0009; G0378; J1644; J1815; J1956; J2920; J2930

== ENCOUNTER 2019-12-05 19:39 | Emergency (ER) | payer MEDICARE ==
[~2019-12-05 19:39] MED LIST changes: -AMLO-258 PO; +AMLO10TA7 PO; +GABA-529 PO; +LEVO500T2 PO; +OMEP20CA12 PO; +PRED20TA3 PO
[2019-12-05] MEDS ORDERED: IPRATROPIUM/ALBUTEROL SULFATE 3 ML SOLUTION IH ONE ×3 (19:40→21:32)
[2019-12-05 21:03] LABS: BASOPHILS % (AUTO) 0.7 % (0.0-5.0); EOSINOPHILS % (AUTO) 2.2 % (0.0-8.0); HEMATOCRIT 38.9 % (36-48); MEAN CORPUSCULAR HEMOGLOBIN 30.9 pg (27.0-33.0); MEAN CORPUSCULAR HGB CONC 32.6 g/dL (32.0-36.0); MEAN CORPUSCULAR VOLUME 94.6 fL (79-99); MONOCYTES % (AUTO) 8.5 % (3.0-13.0); NEUTROPHILS % (AUTO) 54.3 % (40.0-77.0); PLATELET COUNT (AUTO) 312 K/uL (130-400); RED BLOOD CELL COUNT(AUTO) 4.11 MIL/uL (4.00-5.50); RED CELL DISTRIBUTION WIDTH 12.8 % (11.0-15.5); WHITE BLOOD COUNT (AUTO) 9.4 K/uL (4.8-10.8)
[2019-12-05 21:12] LABS: ALBUMIN 3.5 g/dL (3.5-5.0); BILIRUBIN,TOTAL 0.3 mg/dL (0.2-1.0); CREATININE 0.7 mg/dL (0.5-1.5); POTASSIUM 4.7 mmol/L (3.5-5.1); TOTAL PROTEIN, SERUM 7.6 g/dL (6.0-8.3)
[2019-12-05] MEDS ORDERED: METHYLPREDNISOLONE SOD SUCC 125MG/2ML VIAL ONE (21:32)
[2019-12-05 22:10] LABS: APPEARANCE,URINE Clear (CLEAR); BILIRUBIN,URINE Negative (NEGATIVE); COLOR,URINE Yellow (YELLOW); GLUCOSE, URINE (UA) Negative (NEGATIVE); KETONES,URINE Negative (NEGATIVE); LEUKOCYTE ESTERASE ,URINE Negative (NEGATIVE); NITRATE,URINE Negative (NEGATIVE); OCCULT BLOOD,URINE Negative (NEGATIVE); PROTEIN,URINE Negative (NEGATIVE); UROBILINOGEN,URINE 0.2 mg/dL (0.2-1.0)
== END 2019-12-05 22:36 | disposition home or self-care (01) ==
LOC: EDH 19:39
DX: J45.901 Unspecified asthma with (acute) exacerbation (principal); Z20.828 Contact with and (suspected) exposure to other viral communicable diseases; I10 Essential (primary) hypertension; Z90.49 Acquired absence of other specified parts of digestive tract; Z90.710 Acquired absence of both cervix and uterus
CPT/HCPCS: 36415; 71045; 80053; 81003; 84484; 85025; 87426; 93005 ×2; 96374; 99285; J2930; U0003

== ENCOUNTER 2019-12-07 15:27 | Emergency (ER) | payer MEDICARE ==
[2019-12-07] MEDS ORDERED: ALBUTEROL INHALER 90MCG/INH IH ONE (16:42)
[2019-12-07] MEDS ORDERED: ASPIRIN 325 MG TABLET ONE (16:43)
[2019-12-07] MEDS ORDERED: ACETAMINOPHEN 325 MG TAB ONE (16:43)
[2019-12-07] MEDS ORDERED: NITROGLYCERIN 1GM/1 INCH PACKET TD ONE (16:43)
[2019-12-07] MEDS ORDERED: METHYLPREDNISOLONE SOD SUCC 125MG/2ML VIAL ONE (16:43)
[2019-12-07 16:59] LABS: BASOPHILS % (AUTO) 0.6 % (0.0-5.0); EOSINOPHILS % (AUTO) 0.7 % (0.0-8.0); HEMATOCRIT 38.2 % (36-48); LYMPHOCYTES % (AUTO) 10.5 % (21.0-51.0); MEAN CORPUSCULAR HEMOGLOBIN 30.9 pg (27.0-33.0); MEAN CORPUSCULAR HGB CONC 32.7 g/dL (32.0-36.0); MEAN CORPUSCULAR VOLUME 94.3 fL (79-99); MONOCYTES % (AUTO) 8.8 % (3.0-13.0); NEUTROPHILS % (AUTO) 78.8 % (40.0-77.0); PLATELET COUNT (AUTO) 314 K/uL (130-400); RED BLOOD CELL COUNT(AUTO) 4.05 MIL/uL (4.00-5.50); RED CELL DISTRIBUTION WIDTH 13.2 % (11.0-15.5); WHITE BLOOD COUNT (AUTO) 11.2 K/uL (4.8-10.8)
[2019-12-07 17:24] LABS: CREATININE 0.9 mg/dL (0.5-1.5); POTASSIUM 3.9 mmol/L (3.5-5.1)
[2019-12-07 17:27] LABS: INR 0.88 (0.85-1.15); PARTIAL THROMBOPLASTIN TIME 24.7 SEC (26.3-35.5); PROTHROMBIN TIME 9.6 SEC (9.6-11.6)
[2019-12-07 17:29] LABS: ALBUMIN 3.8 g/dL (3.5-5.0); BILIRUBIN,TOTAL 0.1 mg/dL (0.2-1.0); TOTAL PROTEIN, SERUM 7.8 g/dL (6.0-8.3)
== END 2019-12-07 20:33 | disposition home or self-care (01) ==
LOC: EDH 15:27
DX: U07.1 COVID-19 (principal); J45.909 Unspecified asthma, uncomplicated; I10 Essential (primary) hypertension; Z90.710 Acquired absence of both cervix and uterus; Z90.49 Acquired absence of other specified parts of digestive tract
CPT/HCPCS: 36415; 71045; 80053; 82550; 84484; 85025; 85378; 85610; 85730; 86140; 87426; 93005; 96374; 99285; J2930

== ENCOUNTER 2019-12-17 18:18 | Inpatient (IN) | payer MEDICARE ==
[~2019-12-17] VITALS: Ht 152.4 cm; Wt 81.5 kg
[2019-12-17 18:46] LABS: BASOPHILS % (AUTO) 0.1 % (0.0-5.0); EOSINOPHILS % (AUTO) 0.1 % (0.0-8.0); HEMATOCRIT 36.2 % (36-48); LYMPHOCYTES % (AUTO) 17.6 % (21.0-51.0); MEAN CORPUSCULAR HEMOGLOBIN 30.9 pg (27.0-33.0); MEAN CORPUSCULAR HGB CONC 33.4 g/dL (32.0-36.0); MEAN CORPUSCULAR VOLUME 92.3 fL (79-99); MONOCYTES % (AUTO) 5.8 % (3.0-13.0); PLATELET COUNT (AUTO) 243 K/uL (130-400); RED BLOOD CELL COUNT(AUTO) 3.92 MIL/uL (4.00-5.50); RED CELL DISTRIBUTION WIDTH 12.8 % (11.0-15.5); WHITE BLOOD COUNT (AUTO) 8.2 K/uL (4.8-10.8)
[2019-12-17 18:58] LABS: CREATININE 0.8 mg/dL (0.5-1.5); POTASSIUM 3.3 mmol/L (3.5-5.1)
[2019-12-17 19:02] LABS: ALBUMIN 2.9 g/dL (3.5-5.0); BILIRUBIN,TOTAL 0.3 mg/dL (0.2-1.0); TOTAL PROTEIN, SERUM 7.2 g/dL (6.0-8.3)
[2019-12-17] MEDS ORDERED: DEXAMETHASONE SOD PHOSPHATE 10MG/ML 1ML VIAL ONE (19:34)
[2019-12-17 19:59] LABS: INR 0.89 (0.85-1.15); PARTIAL THROMBOPLASTIN TIME 29.5 SEC (26.3-35.5); PROTHROMBIN TIME 9.7 SEC (9.6-11.6)
[2019-12-17] MEDS ORDERED: ALBUTEROL INHALER 90MCG/INH IH ONE (21:20)
[2019-12-17] MEDS: SODIUM CHLORIDE 0.9% 1000ML 1,000 ML IV SCH (22:12)
[2019-12-17] MEDS ORDERED: ONDANSETRON HCL 4 MG/2 ML VIAL IV PRN (22:15)
[2019-12-17] MEDS ORDERED: ERGOCALCIFEROL (VITAMIN D2) 50,000 UNIT CAPSULE PO ONE (22:15)
[2019-12-17] MEDS: AZITHROMYCIN 500MG+NS 250ML 250 ML IV SCH (22:15)
[2019-12-17] MEDS ORDERED: ACETAMINOPHEN 325 MG TAB PO PRN ×2 (22:15)
[2019-12-17] MEDS ORDERED: ERGOCALCIFEROL (VITAMIN D2) 50,000 UNIT CAPSULE ONE (22:33)
[2019-12-17] MEDS ORDERED: AZITHROMYCIN 500MG+NS 250ML 250 ML IV ONE (22:33)
[2019-12-17] MEDS ORDERED: GUAIFENESIN-DM 200/20 MG 10 ML ONE (22:48)
[2019-12-18] MEDS ORDERED: ALBUTEROL INHALER 90MCG/INH IH PRN
[2019-12-18] MEDS ORDERED: POTASSIUM CHLORIDE 20 MEQ ERTAB PO ONE (01:23)
[2019-12-18 03:05] VITALS: BP 147/67
--- NOTE | 2019-12-18 05:43 | NUR ---
ASSESSMENT PT. IS ALERT AND ORIENTED TIMES 4 NO COMPLAINTS OF ANY PAIN. PT.'S IS IN 407. VITALS ARE STABLE WILL CONTINUE TO MONITOR
[2019-12-18 08:00] VITALS: BP 150/83
[2019-12-18 08:04] LABS: ALANINE AMINOTRANSFERASE 27 U/L (12-78); ALBUMIN 2.6 g/dL (3.5-5.0); ASPARTATE AMINOTRANSFERASE 24 U/L (10-37); BILIRUBIN,TOTAL 0.2 mg/dL (0.2-1.0); CARBON DIOXIDE 26 mmol/L (21-32); CHLORIDE 105 mmol/L (101-111); CREATININE 0.8 mg/dL (0.5-1.5); GLOMERULAR FILTR. RATE CALC 76 mL/min (>60); GLUCOSE,RANDOM 167 mg/dL (70-105); LACTATE DEHYDROGENASE 189 U/L (81-234); POTASSIUM 4.4 mmol/L (3.5-5.1); SODIUM SERUM 138 mmol/L (136-145); TOTAL PROTEIN, SERUM 7.1 g/dL (6.0-8.3); UREA NITROGEN, BLOOD 9 mg/dL (7-18)
[2019-12-18 08:17] LABS: HEMATOCRIT 36.7 % (36-48); LYMPHOCYTES % (AUTO) 21.6 % (21.0-51.0); MEAN CORPUSCULAR HEMOGLOBIN 30.7 pg (27.0-33.0); MEAN CORPUSCULAR VOLUME 93.1 fL (79-99); MONOCYTES % (AUTO) 2.5 % (3.0-13.0); NEUTROPHILS % (AUTO) 75.3 % (40.0-77.0); PLATELET COUNT (AUTO) 265 K/uL (130-400); RED BLOOD CELL COUNT(AUTO) 3.94 MIL/uL (4.00-5.50); RED CELL DISTRIBUTION WIDTH 12.7 % (11.0-15.5); WHITE BLOOD COUNT (AUTO) 3.6 K/uL (4.8-10.8)
[2019-12-18] MEDS: METHYLPREDNISOLONE SOD SUCC 40MG/ML 1ML IVP SCH ×3 (09:12→20:55)
[2019-12-18] MEDS: ACETYLCYSTEINE 600 MG CAPSULE PO SCH ×2 (09:12→20:55)
[2019-12-18] MEDS: ASCORBIC ACID 500 MG TAB PO SCH (09:12)
[2019-12-18] MEDS: ZINC SULFATE 220 CAPSULE PO SCH (09:12)
[2019-12-18] MEDS: DOXYCYCLINE HYCLATE 100 MG TABLET PO SCH ×2 (09:12→20:57)
[2019-12-18] MEDS: ENOXAPARIN SODIUM 40 MG/0.4 ML SYRINGE SQ SCH (09:13)
[2019-12-18 11:15] VITALS: BP 156/58
[2019-12-18] MEDS: SODIUM CHLORIDE 0.9% 1000ML 1,000 ML IV SCH (12:16)
[2019-12-18] MEDS ORDERED: HYDR-4153 PO (12:26)
[2019-12-18] MEDS ORDERED: METH4TAB15 PO (12:26)
[2019-12-18] MEDS ORDERED: CODE10LI PO (12:26)
[2019-12-18] MEDS ORDERED: CODEINE PHOSPHATE PO SCH (13:45)
[2019-12-18] MEDS ORDERED: GUAIFENESIN PO SCH (13:45)
[2019-12-18] MEDS ORDERED: [UNRECOGNIZED DRUG - OTHER] PO SCH (13:45)
[2019-12-18] MEDS ORDERED: GUAIFENESIN-CODEINE 5 ML SYRUP PO PRN (14:15)
--- NOTE | 2019-12-18 15:49 | NUR ---
Spoke to Md Joaquín MD okay with discontinuing albuterol nebulizer treatment
[2019-12-18 16:00] VITALS: BP 131/71
[2019-12-18] MEDS: BUDESONIDE 0.5 MG/2 ML INH IH SCH (16:55)
--- NOTE | 2019-12-18 17:53 | NUR ---
INITIAL SW spoke with patient's daughter, Ally Andrews. Patient lives with spouse, Omar PepperJr. but he is presently also hospitalized at this hospital (rm [phone]). Patient has no home services or DME. She is able to complete ADL's independently and drives as per daughter. PCP is Dr. Xiao Landis. Pharmacy is [facility] on [address] [place] [address] in [place] or [facility] in [place]. No safety concerns voiced by daughter of patient returning home. DCP is home. Addendum: 12/18/19 at 1755 by ELIZABETH SCOTT Amended: Links added.
[2019-12-18] MEDS ORDERED: ALBUTEROL SULFATE 0.083% 2.5 MG/3 ML INH IH SCH (18:00)
[2019-12-18 20:02] VITALS: BP 150/80
[2019-12-18] MEDS: LOSARTAN 50 MG TABLET PO SCH (20:55)
[2019-12-18] MEDS: HYDRALAZINE HCL 25 MG TABLET PO SCH (20:56)
[2019-12-18] MEDS: METOPROLOL SUCCINATE 50 MG TAB.SR.24H PO SCH (20:57)
[2019-12-18] MEDS: AZITHROMYCIN 500MG+NS 250ML 250 ML IV SCH (20:57)
[2019-12-18] MEDS: GABAPENTIN 100 MG CAPSULE PO SCH (20:57)
[2019-12-18] MEDS ORDERED: NON-FORMULARY MEDICATION 1 EACH (Omega-3S/Dha/Epa/Fish Oil (Fish Oil 1,000 mg Softgel) 1 E PO SCH (21:00)
[2019-12-18] MEDS: GUAIFENESIN-DM 200/20 MG 10 ML PO PRN (21:00)
[2019-12-18] MEDS: POTASSIUM CHLORIDE 20 MEQ ERTAB PO SCH ×2 (23:23)
[2019-12-19 00:06] VITALS: BP 128/80
--- NOTE | 2019-12-19 01:18 | NUR ---
RECEIVED REPORT FROM [facility], ASSUMED CARE, SHIFT ASSESSMENT DONE, HEAD TO TOE ASSESSMENT DONE, LUNG FIELD CLEAR AND DIMINISHED, ABDOMEN SOFT NON TENDER, HAD A BM, GOOD CAPILLARY REFILL <3 SEC, PALPABLE PEDAL PULSE, TIMED MEDICATION GIVEN SEE EMAR, PRE AND POST PAIN ASSESSMENT DONE, COORDINATED WITH RESPIRATORY THERAPIST FOR INITIAL IS REACHED 1000 ML, PT ON O2 AT 2L, GOAL IS ENCOURAGE USED OF INCENTIVE SPIROMETER AND DEEP BREATHING TECHNIQUE, WILL CHECK ORTHOSTATIC O2 SAT AND WHILE WALKING IF PT DESATURATE THEN TITRATE THE O2 THEN GOAL IS ROOM AIR. SAFETY MAINTAINED. PT HAD A SHOWER , ORAL CARE. PRAYED WITH THE PT.
[2019-12-19 04:35] VITALS: BP 86/45
[2019-12-19] MEDS: GUAIFENESIN-DM 200/20 MG 10 ML PO PRN (04:50)
[2019-12-19] MEDS: BUDESONIDE 0.5 MG/2 ML INH IH SCH ×2 (06:00→18:00)
[2019-12-19 06:15] LABS: BASOPHILS % (AUTO) 0.1 % (0.0-5.0); LYMPHOCYTES % (AUTO) 13.5 % (21.0-51.0); MEAN CORPUSCULAR HEMOGLOBIN 29.9 pg (27.0-33.0); MEAN CORPUSCULAR HGB CONC 31.9 g/dL (32.0-36.0); MEAN CORPUSCULAR VOLUME 93.9 fL (79-99); MONOCYTES % (AUTO) 2.9 % (3.0-13.0); NEUTROPHILS % (AUTO) 82.9 % (40.0-77.0); PLATELET COUNT (AUTO) 297 K/uL (130-400); RED BLOOD CELL COUNT(AUTO) 3.94 MIL/uL (4.00-5.50); RED CELL DISTRIBUTION WIDTH 12.8 % (11.0-15.5); WHITE BLOOD COUNT (AUTO) 9.4 K/uL (4.8-10.8)
[2019-12-19 06:35] LABS: ALANINE AMINOTRANSFERASE 32 U/L (12-78); ALBUMIN 2.7 g/dL (3.5-5.0); ASPARTATE AMINOTRANSFERASE 23 U/L (10-37); BILIRUBIN,TOTAL 0.2 mg/dL (0.2-1.0); CARBON DIOXIDE 24 mmol/L (21-32); CHLORIDE 107 mmol/L (101-111); CREATININE 0.9 mg/dL (0.5-1.5); GLOMERULAR FILTR. RATE CALC 66 mL/min (>60); GLUCOSE,RANDOM 202 mg/dL (70-105); LACTATE DEHYDROGENASE 205 U/L (81-234); POTASSIUM 4.7 mmol/L (3.5-5.1); SODIUM SERUM 140 mmol/L (136-145); TOTAL PROTEIN, SERUM 7.2 g/dL (6.0-8.3); UREA NITROGEN, BLOOD 12 mg/dL (7-18)
[2019-12-19 08:00] VITALS: BP 125/71
[2019-12-19] MEDS: ACETYLCYSTEINE 600 MG CAPSULE PO SCH ×2 (08:33→20:28)
[2019-12-19] MEDS: ZINC SULFATE 220 CAPSULE PO SCH (08:34)
[2019-12-19] MEDS: LOSARTAN 50 MG TABLET PO SCH ×2 (08:34→20:28)
[2019-12-19] MEDS: CALCIUM 600 + VITAMIN D 400 TABLET PO SCH (08:34)
[2019-12-19] MEDS: ASPIRIN 81MG TAB.CHEW PO SCH (08:34)
[2019-12-19] MEDS: METOPROLOL SUCCINATE 50 MG TAB.SR.24H PO SCH ×2 (08:34→20:28)
[2019-12-19] MEDS: ASCORBIC ACID 500 MG TAB PO SCH (08:34)
[2019-12-19] MEDS: DOXYCYCLINE HYCLATE 100 MG TABLET PO SCH ×2 (08:34→20:28)
[2019-12-19] MEDS: FISH OIL 1000 MG/CAP PO SCH (08:34)
[2019-12-19] MEDS: AMLODIPINE BESYLATE 5 MG TAB PO SCH (08:34)
[2019-12-19] MEDS: HYDRALAZINE HCL 25 MG TABLET PO SCH ×2 (08:35→20:28)
[2019-12-19] MEDS: ENOXAPARIN SODIUM 40 MG/0.4 ML SYRINGE SQ SCH (08:35)
[2019-12-19] MEDS: METHYLPREDNISOLONE SOD SUCC 40MG/ML 1ML IVP SCH (08:37)
[2019-12-19] MEDS: **HM**(Cholecalciferol (Vitamin D3) (Vitamin D) 1,000 UNIT PO SCH (08:37)
[2019-12-19] MEDS ORDERED: CHOLECALCIFEROL 5000 UNIT PO SCH (09:00)
[2019-12-19 11:05] VITALS: BP 137/70
[2019-12-19] MEDS: DEXAMETHASONE SOD PHOSPHATE 4 MG/ML 1ML VIAL IVP SCH (11:11)
[2019-12-19 16:00] VITALS: BP 158/93
[2019-12-19 19:45] VITALS: BP 161/67
[2019-12-19] MEDS: GABAPENTIN 100 MG CAPSULE PO SCH (20:31)
[2019-12-19] MEDS: AZITHROMYCIN 500MG+NS 250ML 250 ML IV SCH (22:15)
[2019-12-20] VITALS (7 sets, daily range): BP systolic 148–173; BP diastolic 59–77
[2019-12-20] MEDS: BUDESONIDE 0.5 MG/2 ML INH IH SCH ×2 (06:00→18:00)
[2019-12-20 07:14] LABS: BASOPHILS % (AUTO) 0.1 % (0.0-5.0); HEMATOCRIT 33.6 % (36-48); MEAN CORPUSCULAR HEMOGLOBIN 30.1 pg (27.0-33.0); MEAN CORPUSCULAR HGB CONC 32.7 g/dL (32.0-36.0); MEAN CORPUSCULAR VOLUME 92.1 fL (79-99); MONOCYTES % (AUTO) 3.8 % (3.0-13.0); PLATELET COUNT (AUTO) 315 K/uL (130-400); RED BLOOD CELL COUNT(AUTO) 3.65 MIL/uL (4.00-5.50); RED CELL DISTRIBUTION WIDTH 12.7 % (11.0-15.5); WHITE BLOOD COUNT (AUTO) 11.8 K/uL (4.8-10.8)
[2019-12-20 07:22] LABS: ALANINE AMINOTRANSFERASE 31 U/L (12-78); ALBUMIN 2.8 g/dL (3.5-5.0); ASPARTATE AMINOTRANSFERASE 18 U/L (10-37); BILIRUBIN,TOTAL 0.2 mg/dL (0.2-1.0); CARBON DIOXIDE 22 mmol/L (21-32); CHLORIDE 99 mmol/L (101-111); CREATININE 0.7 mg/dL (0.5-1.5); GLOMERULAR FILTR. RATE CALC 88 mL/min (>60); GLUCOSE,RANDOM 166 mg/dL (70-105); LACTATE DEHYDROGENASE 205 U/L (81-234); POTASSIUM 3.5 mmol/L (3.5-5.1); SODIUM SERUM 128 mmol/L (136-145); TOTAL PROTEIN, SERUM 6.9 g/dL (6.0-8.3); UREA NITROGEN, BLOOD 15 mg/dL (7-18)
[2019-12-20] MEDS: POTASSIUM CHLORIDE 20 MEQ ERTAB PO SCH (07:27)
[2019-12-20] MEDS: ASPIRIN 81MG TAB.CHEW PO SCH (09:08)
[2019-12-20] MEDS: DEXAMETHASONE SOD PHOSPHATE 4 MG/ML 1ML VIAL IVP SCH (09:08)
[2019-12-20] MEDS: ACETYLCYSTEINE 600 MG CAPSULE PO SCH ×2 (09:08→20:44)
[2019-12-20] MEDS: ASCORBIC ACID 500 MG TAB PO SCH (09:09)
[2019-12-20] MEDS: FISH OIL 1000 MG/CAP PO SCH (09:09)
[2019-12-20] MEDS: ZINC SULFATE 220 CAPSULE PO SCH (09:09)
[2019-12-20] MEDS: LOSARTAN 50 MG TABLET PO SCH ×2 (09:09→20:44)
[2019-12-20] MEDS: DOXYCYCLINE HYCLATE 100 MG TABLET PO SCH ×2 (09:09→20:45)
[2019-12-20] MEDS: AMLODIPINE BESYLATE 5 MG TAB PO SCH (09:09)
[2019-12-20] MEDS: METOPROLOL SUCCINATE 50 MG TAB.SR.24H PO SCH ×2 (09:09→20:45)
[2019-12-20] MEDS: CALCIUM 600 + VITAMIN D 400 TABLET PO SCH (09:09)
[2019-12-20] MEDS: HYDRALAZINE HCL 25 MG TABLET PO SCH ×2 (09:09→20:45)
[2019-12-20] MEDS: ENOXAPARIN SODIUM 40 MG/0.4 ML SYRINGE SQ SCH (09:10)
[2019-12-20] MEDS: **HM**(Cholecalciferol (Vitamin D3) (Vitamin D) 1,000 UNIT PO SCH (09:19)
[2019-12-20] MEDS ORDERED: FLUCONAZOLE 100 MG TAB PO SCH (10:30)
[2019-12-20 13:22] LABS: CREATININE 0.8 mg/dL (0.5-1.5); POTASSIUM 3.8 mmol/L (3.5-5.1)
[2019-12-20] MEDS: AZITHROMYCIN 500MG+NS 250ML 250 ML IV SCH (20:44)
[2019-12-20] MEDS: GABAPENTIN 100 MG CAPSULE PO SCH (20:45)
[2019-12-21] MEDS: POTASSIUM CHLORIDE 20 MEQ ERTAB PO SCH (00:47)
[2019-12-21 04:00] VITALS: BP 151/57
[2019-12-21 06:14] LABS: BASOPHILS % (AUTO) 0.1 % (0.0-5.0); HEMATOCRIT 35.7 % (36-48); LYMPHOCYTES % (AUTO) 21.4 % (21.0-51.0); MEAN CORPUSCULAR HEMOGLOBIN 30.2 pg (27.0-33.0); MEAN CORPUSCULAR HGB CONC 33.1 g/dL (32.0-36.0); MEAN CORPUSCULAR VOLUME 91.3 fL (79-99); MONOCYTES % (AUTO) 5.8 % (3.0-13.0); NEUTROPHILS % (AUTO) 71.2 % (40.0-77.0); PLATELET COUNT (AUTO) 338 K/uL (130-400); RED BLOOD CELL COUNT(AUTO) 3.91 MIL/uL (4.00-5.50); RED CELL DISTRIBUTION WIDTH 12.6 % (11.0-15.5); WHITE BLOOD COUNT (AUTO) 8.5 K/uL (4.8-10.8)
[2019-12-21 06:38] LABS: ALANINE AMINOTRANSFERASE 30 U/L (12-78); ALBUMIN 2.8 g/dL (3.5-5.0); ASPARTATE AMINOTRANSFERASE 14 U/L (10-37); BILIRUBIN,TOTAL 0.3 mg/dL (0.2-1.0); CARBON DIOXIDE 24 mmol/L (21-32); CHLORIDE 105 mmol/L (101-111); CREATININE 0.8 mg/dL (0.5-1.5); GLOMERULAR FILTR. RATE CALC 76 mL/min (>60); GLUCOSE,RANDOM 161 mg/dL (70-105); LACTATE DEHYDROGENASE 178 U/L (81-234); POTASSIUM 4.2 mmol/L (3.5-5.1); SODIUM SERUM 136 mmol/L (136-145); TOTAL PROTEIN, SERUM 6.9 g/dL (6.0-8.3); UREA NITROGEN, BLOOD 19 mg/dL (7-18)
[2019-12-21 07:30] VITALS: BP 128/68
[2019-12-21] MEDS: ASCORBIC ACID 500 MG TAB PO SCH (08:41)
[2019-12-21] MEDS: LOSARTAN 50 MG TABLET PO SCH ×2 (08:42→20:25)
[2019-12-21] MEDS: ZINC SULFATE 220 CAPSULE PO SCH (08:42)
[2019-12-21] MEDS: DOXYCYCLINE HYCLATE 100 MG TABLET PO SCH ×2 (08:42→20:25)
[2019-12-21] MEDS: ASPIRIN 81MG TAB.CHEW PO SCH (08:42)
[2019-12-21] MEDS: CALCIUM 600 + VITAMIN D 400 TABLET PO SCH (08:42)
[2019-12-21] MEDS: ACETYLCYSTEINE 600 MG CAPSULE PO SCH ×2 (08:42→20:24)
[2019-12-21] MEDS: FISH OIL 1000 MG/CAP PO SCH (08:42)
[2019-12-21] MEDS: AMLODIPINE BESYLATE 5 MG TAB PO SCH (08:43)
[2019-12-21] MEDS: HYDRALAZINE HCL 25 MG TABLET PO SCH ×2 (08:43→20:24)
[2019-12-21] MEDS: METOPROLOL SUCCINATE 50 MG TAB.SR.24H PO SCH ×2 (08:44→20:24)
[2019-12-21] MEDS: DEXAMETHASONE SOD PHOSPHATE 4 MG/ML 1ML VIAL IVP SCH (08:44)
[2019-12-21] MEDS: ENOXAPARIN SODIUM 40 MG/0.4 ML SYRINGE SQ SCH (08:45)
[2019-12-21] MEDS: **HM**(Cholecalciferol (Vitamin D3) (Vitamin D) 1,000 UNIT PO SCH (09:00)
[2019-12-21] MEDS: GUAIFENESIN-DM 200/20 MG 10 ML PO PRN (09:04)
[2019-12-21 11:00] VITALS: BP 155/64
--- NOTE | 2019-12-21 13:32 | NUR ---
ATTEMPT MADE TO CALL LORI BENSON PT DAUGHTER TO GIVEN HER AN PT STATUS UPDATE- UNFORTUNATELY NO ANSWER. LET PRIMARY RN KNOW. THANK YOU
[2019-12-21 16:00] VITALS: BP 116/56
[2019-12-21 19:30] VITALS: BP 189/72
[2019-12-21] MEDS: GABAPENTIN 100 MG CAPSULE PO SCH (20:24)
[2019-12-21] MEDS: AZITHROMYCIN 500MG+NS 250ML 250 ML IV SCH (21:50)
[2019-12-21 23:51] VITALS: BP 148/62
[2019-12-22] MEDS: POTASSIUM CHLORIDE 20 MEQ ERTAB PO SCH (00:19)
[2019-12-22 04:00] VITALS: BP 156/65
[2019-12-22 06:42] LABS: BASOPHILS % (AUTO) 0.2 % (0.0-5.0); HEMATOCRIT 35.1 % (36-48); LYMPHOCYTES % (AUTO) 26.7 % (21.0-51.0); MEAN CORPUSCULAR HEMOGLOBIN 30.6 pg (27.0-33.0); MEAN CORPUSCULAR HGB CONC 33.6 g/dL (32.0-36.0); MEAN CORPUSCULAR VOLUME 90.9 fL (79-99); MONOCYTES % (AUTO) 6.2 % (3.0-13.0); NEUTROPHILS % (AUTO) 65.6 % (40.0-77.0); PLATELET COUNT (AUTO) 355 K/uL (130-400); RED BLOOD CELL COUNT(AUTO) 3.86 MIL/uL (4.00-5.50); RED CELL DISTRIBUTION WIDTH 12.4 % (11.0-15.5); WHITE BLOOD COUNT (AUTO) 9.8 K/uL (4.8-10.8)
[2019-12-22 07:31] LABS: ALANINE AMINOTRANSFERASE 29 U/L (12-78); ALBUMIN 2.7 g/dL (3.5-5.0); ASPARTATE AMINOTRANSFERASE 12 U/L (10-37); BILIRUBIN,TOTAL 0.4 mg/dL (0.2-1.0); CARBON DIOXIDE 23 mmol/L (21-32); CHLORIDE 104 mmol/L (101-111); CREATININE 0.8 mg/dL (0.5-1.5); GLOMERULAR FILTR. RATE CALC 76 mL/min (>60); GLUCOSE,RANDOM 147 mg/dL (70-105); LACTATE DEHYDROGENASE 196 U/L (81-234); POTASSIUM 4.5 mmol/L (3.5-5.1); SODIUM SERUM 136 mmol/L (136-145); TOTAL PROTEIN, SERUM 6.5 g/dL (6.0-8.3); UREA NITROGEN, BLOOD 19 mg/dL (7-18)
[2019-12-22 07:40] LABS: CRP QUANTITATIVE < 2.00 mg/L (0.00-9.0)
[2019-12-22 08:41] VITALS: BP 153/51
[2019-12-22] MEDS: ASCORBIC ACID 500 MG TAB PO SCH (08:58)
[2019-12-22] MEDS: LOSARTAN 50 MG TABLET PO SCH (08:59)
[2019-12-22] MEDS: AMLODIPINE BESYLATE 5 MG TAB PO SCH (08:59)
[2019-12-22] MEDS: GUAIFENESIN-DM 200/20 MG 10 ML PO PRN (08:59)
[2019-12-22] MEDS: FISH OIL 1000 MG/CAP PO SCH (08:59)
[2019-12-22] MEDS: ZINC SULFATE 220 CAPSULE PO SCH (08:59)
[2019-12-22] MEDS: ACETYLCYSTEINE 600 MG CAPSULE PO SCH (09:00)
[2019-12-22] MEDS: DEXAMETHASONE SOD PHOSPHATE 4 MG/ML 1ML VIAL IVP SCH (09:00)
[2019-12-22] MEDS: **HM**(Cholecalciferol (Vitamin D3) (Vitamin D) 1,000 UNIT PO SCH (09:00)
[2019-12-22] MEDS: DOXYCYCLINE HYCLATE 100 MG TABLET PO SCH (09:00)
[2019-12-22] MEDS: ASPIRIN 81MG TAB.CHEW PO SCH (09:01)
[2019-12-22] MEDS: METOPROLOL SUCCINATE 50 MG TAB.SR.24H PO SCH (09:01)
[2019-12-22] MEDS: CALCIUM 600 + VITAMIN D 400 TABLET PO SCH (09:01)
[2019-12-22] MEDS: HYDRALAZINE HCL 25 MG TABLET PO SCH (09:01)
[2019-12-22] MEDS: ENOXAPARIN SODIUM 40 MG/0.4 ML SYRINGE SQ SCH (09:02)
[2019-12-22 11:16] VITALS: BP 125/47
[2019-12-22 16:03] VITALS: BP 98/57
== END 2019-12-22 18:20 | disposition home or self-care (01) | DRG 177 ==
LOC: EDH 18:18 → EDHIP 22:12 → OBSVTOIN 22:12 → 4BH 12-18 03:15
PROVIDERS: ADMIT Internal Medicine; ATTEND Internal Medicine
PROC: XW13325 Transfusion of Convalescent Plasma (Nonautologous) into Peripheral Vein, Percutaneous Approach, New Technology Group 5 (ICD-10-PCS; principal; 2019-12-19)
DX: U07.1 COVID-19 (principal); J96.01 Acute respiratory failure with hypoxia; J12.89 Other viral pneumonia; J45.901 Unspecified asthma with (acute) exacerbation; E87.1 Hypo-osmolality and hyponatremia; E87.6 Hypokalemia; E66.9 Obesity, unspecified; I10 Essential (primary) hypertension; Z90.710 Acquired absence of both cervix and uterus; Z90.49 Acquired absence of other specified parts of digestive tract; Z68.35 Body mass index [BMI] 35.0-35.9, adult; Z83.3 Family history of diabetes mellitus; Z82.49 Family history of ischemic heart disease and other diseases of the circulatory system; Z82.3 Family history of stroke; Z80.9 Family history of malignant neoplasm, unspecified
CPT/HCPCS: 36415; 36430; 71045; 80048; 80053; 82550; 82728; 83605; 83615; 83880; 84145; 84484; 85025; 85378; 85610; 85730; 86140; 86900; 86901; 86927; 87426; 93005; G0378; J0456; J1100; J1650; J2920

== ENCOUNTER 2020-02-01 15:56 | Emergency (ER) | payer MEDICARE ==
[~2020-02-01 15:56] MED LIST changes: +CODE10LI PO; +HYDR-4153 PO; -LEVO500T2 PO; -PRED20TA3 PO
[2020-02-01 16:20] LABS: BASOPHILS % (AUTO) 1.1 % (0.0-5.0); EOSINOPHILS % (AUTO) 2.4 % (0.0-8.0); LYMPHOCYTES % (AUTO) 46.2 % (21.0-51.0); MEAN CORPUSCULAR HEMOGLOBIN 30.7 pg (27.0-33.0); MEAN CORPUSCULAR HGB CONC 32.6 g/dL (32.0-36.0); MEAN CORPUSCULAR VOLUME 94.1 fL (79-99); MONOCYTES % (AUTO) 7.5 % (3.0-13.0); NEUTROPHILS % (AUTO) 42.6 % (40.0-77.0); PLATELET COUNT (AUTO) 256 K/uL (130-400); RED BLOOD CELL COUNT(AUTO) 4.04 MIL/uL (4.00-5.50); RED CELL DISTRIBUTION WIDTH 13.8 % (11.0-15.5); WHITE BLOOD COUNT (AUTO) 8.8 K/uL (4.8-10.8)
[2020-02-01 16:32] LABS: CREATININE 0.8 mg/dL (0.5-1.5); INR 0.89 (0.85-1.15); PARTIAL THROMBOPLASTIN TIME 25.8 SEC (26.3-35.5); POTASSIUM 3.6 mmol/L (3.5-5.1); PROTHROMBIN TIME 9.7 SEC (9.6-11.6)
[2020-02-01 16:36] LABS: ALBUMIN 3.8 g/dL (3.5-5.0); BILIRUBIN,TOTAL 0.3 mg/dL (0.2-1.0); CRP QUANTITATIVE 8.8 mg/L (0.00-9.0); TOTAL PROTEIN, SERUM 7.6 g/dL (6.0-8.3)
[2020-02-01] MEDS ORDERED: ASPIRIN 325 MG TABLET ONE (16:40)
[2020-02-01] MEDS ORDERED: NITROGLYCERIN 1GM/1 INCH PACKET TD ONE (16:41)
[2020-02-01 16:55] LABS: FERRITIN 119 ng/mL (15-150)
[2020-02-01 18:12] LABS: APPEARANCE,URINE Clear (CLEAR); BILIRUBIN,URINE Negative (NEGATIVE); COLOR,URINE Yellow (YELLOW); GLUCOSE, URINE (UA) Negative (NEGATIVE); KETONES,URINE Negative (NEGATIVE); LEUKOCYTE ESTERASE ,URINE Trace (NEGATIVE); NITRATE,URINE Negative (NEGATIVE); OCCULT BLOOD,URINE Negative (NEGATIVE); PH,URINE 6.5 (5.0-8.0); PROTEIN,URINE Negative (NEGATIVE); UROBILINOGEN,URINE 0.2 mg/dL (0.2-1.0)
[2020-02-01 18:19] LABS: BACTERIA,URINE Rare /HPF (None Seen); RBC,URINE 0-1 /HPF (0-1); SQUAMOUS EPITHELIAL CELL,UR Rare /HPF (0-2)
[2020-02-01] MEDS ORDERED: IOHEXOL-350 75 ML VIAL IV ONE (20:52)
[2020-02-01] MEDS ORDERED: TRAMADOL HCL 50 MG TABLET ONE (23:12)
== END 2020-02-01 23:37 | disposition home or self-care (01) ==
LOC: EDH 15:56
DX: U07.1 COVID-19 (principal); R07.89 Other chest pain; R06.00 Dyspnea, unspecified; J12.89 Other viral pneumonia; I10 Essential (primary) hypertension; J45.909 Unspecified asthma, uncomplicated; Z90.49 Acquired absence of other specified parts of digestive tract; Z90.710 Acquired absence of both cervix and uterus
CPT/HCPCS: 36415; 71045; 71275; 80053; 81001; 82550; 82728; 83605; 84484 ×2; 85025; 85378; 85610; 85730; 86140; 87426; 93005 ×2; 99291; Q9967; U0003

== ENCOUNTER 2020-02-04 04:47 | Emergency (ER) | payer MEDICARE ==
[~2020-02-04 04:47] MED LIST changes: +AMLO-258 PO; -AMLO10TA7 PO
[2020-02-04 05:04] LABS: EOSINOPHILS % (AUTO) 2.6 % (0.0-8.0); HEMATOCRIT 36.5 % (36-48); LYMPHOCYTES % (AUTO) 46.1 % (21.0-51.0); MEAN CORPUSCULAR HEMOGLOBIN 30.4 pg (27.0-33.0); MEAN CORPUSCULAR HGB CONC 32.1 g/dL (32.0-36.0); MEAN CORPUSCULAR VOLUME 94.8 fL (79-99); MONOCYTES % (AUTO) 7.8 % (3.0-13.0); NEUTROPHILS % (AUTO) 42.4 % (40.0-77.0); PLATELET COUNT (AUTO) 236 K/uL (130-400); RED BLOOD CELL COUNT(AUTO) 3.85 MIL/uL (4.00-5.50); WHITE BLOOD COUNT (AUTO) 7.7 K/uL (4.8-10.8)
[2020-02-04 05:16] LABS: CREATININE 0.7 mg/dL (0.5-1.5); POTASSIUM 3.6 mmol/L (3.5-5.1)
[2020-02-04] MEDS ORDERED: MORPHINE SULFATE 4 MG/1ML SYG ONE (05:17)
[2020-02-04 05:18] LABS: ALBUMIN 3.7 g/dL (3.5-5.0); BILIRUBIN,TOTAL 0.4 mg/dL (0.2-1.0); TOTAL PROTEIN, SERUM 7.5 g/dL (6.0-8.3)
[2020-02-04 05:34] LABS: INR 0.9 (0.85-1.15); PARTIAL THROMBOPLASTIN TIME 25.5 SEC (26.3-35.5); PROTHROMBIN TIME 9.8 SEC (9.6-11.6)
== END 2020-02-04 06:13 | disposition home or self-care (01) ==
LOC: EDH 04:47
DX: B02.8 Zoster with other complications (principal); R07.89 Other chest pain; J45.909 Unspecified asthma, uncomplicated; I10 Essential (primary) hypertension; Z90.49 Acquired absence of other specified parts of digestive tract; Z90.710 Acquired absence of both cervix and uterus
CPT/HCPCS: 36415; 71045; 80053; 82550; 84484; 85025; 85610; 85730; 93005; 96374; 99285; J2270

== ENCOUNTER → 2020-05-04 | Outpatient (CLI) | payer OTHER | END | disposition home or self-care (01) | LOC: RAH 10:23 | PROVIDERS: ATTEND Internal Medicine Cardiovascular Disease | DX: Z13.6 Encounter for screening for cardiovascular disorders (principal) | CPT/HCPCS: 75571 ==

== ENCOUNTER → 2020-08-15 | Outpatient (CLI) | payer MEDICARE | END | disposition home or self-care (01) | LOC: RAH 14:09 | PROVIDERS: ATTEND Internal Medicine Nephrology | DX: Z12.31 Encounter for screening mammogram for malignant neoplasm of breast (principal) | CPT/HCPCS: 77067 ==

== ENCOUNTER 2020-09-08 06:30 | Emergency (ER) | payer MEDICARE ==
[2020-09-08 07:16] LABS: BASOPHILS % (AUTO) 1.3 % (0.0-5.0); EOSINOPHILS % (AUTO) 2.1 % (0.0-8.0); HEMATOCRIT 39.3 % (36-48); LYMPHOCYTES % (AUTO) 37.2 % (21.0-51.0); MEAN CORPUSCULAR HGB CONC 32.3 g/dL (32.0-36.0); MEAN CORPUSCULAR VOLUME 92.9 fL (79-99); MONOCYTES % (AUTO) 6.9 % (3.0-13.0); NEUTROPHILS % (AUTO) 52.1 % (40.0-77.0); PLATELET COUNT (AUTO) 279 K/uL (130-400); RED BLOOD CELL COUNT(AUTO) 4.23 MIL/uL (4.00-5.50); RED CELL DISTRIBUTION WIDTH 13.2 % (11.0-15.5); WHITE BLOOD COUNT (AUTO) 8.4 K/uL (4.8-10.8)
[2020-09-08 07:31] LABS: INR 0.91 (0.85-1.15)
[2020-09-08 07:32] LABS: PARTIAL THROMBOPLASTIN TIME 25.4 SEC (26.3-35.5)
[2020-09-08 07:38] LABS: ALBUMIN 3.6 g/dL (3.5-5.0); BILIRUBIN,TOTAL 0.2 mg/dL (0.2-1.0); CREATININE 0.7 mg/dL (0.5-1.5); TOTAL PROTEIN, SERUM 7.8 g/dL (6.0-8.3)
[2020-09-08] MEDS ORDERED: ONDANSETRON HCL 4 MG/2 ML VIAL ONE (07:41)
[2020-09-08] MEDS ORDERED: DiphenhydrAMINE HCL 50 MG/ML VIAL ONE (07:41)
[2020-09-08] MEDS ORDERED: PROCHLORPERAZINE EDISYLATE 10 MG/2 ML VIAL ONE (07:41)
[2020-09-08] MEDS ORDERED: SODIUM CHLORIDE 0.9% 1000ML 1,000 ML IV ONE (07:43)
[2020-09-08] MEDS ORDERED: SODIUM CHLORIDE 0.9% 500ML 500 ML IV ONE (07:50)
[2020-09-08] MEDS ORDERED: MECLIZINE HCL 25 MG TABLET ONE (08:53)
[2020-09-08 08:55] LABS: APPEARANCE,URINE Clear (CLEAR); BILIRUBIN,URINE Negative (NEGATIVE); COLOR,URINE Yellow (YELLOW); GLUCOSE, URINE (UA) Negative (NEGATIVE); KETONES,URINE Negative (NEGATIVE); LEUKOCYTE ESTERASE ,URINE Negative (NEGATIVE); NITRATE,URINE Negative (NEGATIVE); OCCULT BLOOD,URINE Negative (NEGATIVE); PROTEIN,URINE Negative (NEGATIVE); UROBILINOGEN,URINE 0.2 mg/dL (0.2-1.0)
== END 2020-09-08 11:00 | disposition home or self-care (01) ==
LOC: EDH 06:30
DX: H81.10 Benign paroxysmal vertigo, unspecified ear (principal); J45.909 Unspecified asthma, uncomplicated; I10 Essential (primary) hypertension; Z86.16 Personal history of COVID-19; Z90.49 Acquired absence of other specified parts of digestive tract; Z90.710 Acquired absence of both cervix and uterus
CPT/HCPCS: 36415; 70450; 71045; 80053; 81003; 84484; 85025; 85610; 85730; 93005; 96361; 96374; 96375; 99285; J0780; J1200; J2405; J7030; J7040

== ENCOUNTER → 2022-10-04 | Outpatient (CLI) | payer MEDICARE, OTHER ==
[~2022-10-04] MED LIST changes: +CEPH500B PO; +FAMC500T8 PO; +GABA300S3 PO; +LOSA-418 PO; -LOSA50TA2 PO
== END | disposition home or self-care (01) ==
LOC: RAH 13:35
PROVIDERS: ATTEND Internal Medicine Nephrology
DX: Z12.31 Encounter for screening mammogram for malignant neoplasm of breast (principal)
CPT/HCPCS: 77067

== ENCOUNTER → 2023-03-04 | Outpatient (CLI) | payer MEDICARE, OTHER ==
[~2023-03-04] MED LIST changes: +AMLO-257 PO; +ASPI-1443 PO; -CEPH500B PO; -FAMC500T8 PO; -GABA-529 PO; -GABA300S3 PO; -OMEP20CA12 PO; +OMEP40CA21 PO
== END | disposition home or self-care (01) ==
LOC: RAH 12:20
PROVIDERS: ATTEND Internal Medicine Nephrology
DX: Z78.0 Asymptomatic menopausal state (principal)
CPT/HCPCS: 77080

== ENCOUNTER → 2023-07-28 | Outpatient (CLI) | payer OTHER ==
[~2023-07-28] MED LIST changes: -AMLO-258 PO; -ASPI-1197 PO; -CHOL100046 PO; -CODE10LI PO; +CODE10LI2 PO; -HYDR-4153 PO; +HYDR25 PO; +LATA2.5D14 OP; -OMEG-148 PO
== END | disposition home or self-care (01) ==
LOC: OIH 09:00
PROVIDERS: ATTEND Internal Medicine Nephrology
DX: Z13.6 Encounter for screening for cardiovascular disorders (principal)
CPT/HCPCS: 75571

== ENCOUNTER 2023-08-07 15:03 | Emergency (ER) | payer MEDICARE, OTHER ==
[~2023-08-07] VITALS: Ht 152.4 cm; Wt 81.2 kg
[2023-08-07] MEDS ORDERED: HYDRALAZINE 20MG/ML VIAL IV ONE (15:30)
[2023-08-07 15:47] LABS: BASOPHILS # (AUTO) 0.08 K/uL (0.00-0.20); BASOPHILS % (AUTO) 0.9 % (0.0-5.0); EOSINOPHILS % (AUTO) 2.2 % (0.0-8.0); IMMATURE GRANULOCYTE ABSOLUTE 0.03 K/uL (0-1); LYMPHOCYTES # (AUTO) 2.7 K/uL (1.0-4.8); LYMPHOCYTES % (AUTO) 30.4 % (21.0-51.0); MEAN CORPUSCULAR HEMOGLOBIN 30.6 pg (27.0-33.0); MEAN CORPUSCULAR HGB CONC 33.3 g/dL (32.0-36.0); MEAN CORPUSCULAR VOLUME 91.8 fL (79-99); MONOCYTES # (AUTO) 0.7 K/uL (0.1-1.0); MONOCYTES % (AUTO) 8.1 % (3.0-13.0); NEUTROPHILS # (AUTO) 5.2 K/uL (1.8-7.7); NEUTROPHILS % (AUTO) 58.1 % (40.0-77.0); PLATELET COUNT (AUTO) 255 K/uL (130-400); RED BLOOD CELL COUNT(AUTO) 3.92 MIL/uL (4.00-5.50); RED CELL DISTRIBUTION WIDTH 14.4 % (11.0-15.5)
[2023-08-07 15:59] LABS: CREATININE 0.6 mg/dL (0.5-1.0); POTASSIUM 3.4 mmol/L (3.5-5.1)
[2023-08-07 16:09] LABS: ALBUMIN 3.5 g/dL (3.5-5.0); BILIRUBIN,TOTAL 0.3 mg/dL (0.2-1.0); MAGNESIUM 1.9 mg/dL (1.80-2.40); TOTAL PROTEIN, SERUM 7.6 g/dL (6.0-8.3)
[2023-08-07] MEDS: POTASSIUM BICARB/CIT AC 25 MEQ TABLET.EFF PO ONE (16:50)
[2023-08-07] MEDS: ACETAMINOPHEN 500 MG TABLET PO ONE (16:50)
[2023-08-07] MEDS ORDERED: METO100T14 PO (17:29)
[2023-08-07 18:17] VITALS: BP 154/63; PULSE 71; RESP 17; O2SAT 97
== END 2023-08-07 18:18 | disposition home or self-care (01) ==
LOC: EDH 15:03
DX: I10 Essential (primary) hypertension (principal); E87.6 Hypokalemia; J45.909 Unspecified asthma, uncomplicated; Z79.82 Long term (current) use of aspirin; Z79.899 Other long term (current) drug therapy; Z98.890 Other specified postprocedural states; Z91.018 Allergy to other foods
CPT/HCPCS: 36415; 80053; 83735; 84484; 85025; 93005; J0360

== ENCOUNTER → 2023-08-25 | Outpatient (CLI) | payer MEDICARE ==
[~2023-08-25] MED LIST changes: +METO100T14 PO
== END | disposition home or self-care (01) ==
LOC: RAH 12:53
PROVIDERS: ATTEND Internal Medicine Nephrology
DX: G44.221 Chronic tension-type headache, intractable (principal)
CPT/HCPCS: 70450

== ENCOUNTER → 2023-09-27 | Outpatient (CLI) | payer MEDICARE | END | disposition home or self-care (01) | LOC: SHCH 07:50 | PROVIDERS: ATTEND Internal Medicine Cardiovascular Disease | DX: I65.23 Occlusion and stenosis of bilateral carotid arteries (principal); R94.31 Abnormal electrocardiogram [ECG] [EKG]; I10 Essential (primary) hypertension | CPT/HCPCS: 93880; 93975 ==

== ENCOUNTER → 2023-10-06 | Outpatient (CLI) | payer MEDICARE | END | disposition home or self-care (01) | LOC: RAH 10:00 | PROVIDERS: ATTEND Internal Medicine Nephrology | DX: Z12.31 Encounter for screening mammogram for malignant neoplasm of breast (principal); R92.323 Mammographic fibroglandular density, bilateral breasts | CPT/HCPCS: 77067 ==

== ENCOUNTER → 2023-10-10 | Outpatient (CLI) | payer MEDICARE ==
[~2023-10-10] MED LIST changes: +IOHEXOL 350 MG/ML 100ML INFUS..BTL IV ONE
== END | disposition home or self-care (01) ==
LOC: RAH 10:00
PROVIDERS: ATTEND Internal Medicine Cardiovascular Disease
DX: I25.10 Atherosclerotic heart disease of native coronary artery without angina pectoris (principal); R07.9 Chest pain, unspecified; K44.9 Diaphragmatic hernia without obstruction or gangrene; M47.815 Spondylosis without myelopathy or radiculopathy, thoracolumbar region
CPT/HCPCS: 75574; Q9967

== ENCOUNTER → 2023-11-27 | Outpatient (CLI) | payer MEDICARE ==
[~2023-11-27] MED LIST changes: -IOHEXOL 350 MG/ML 100ML INFUS..BTL IV ONE
== END | disposition home or self-care (01) ==
LOC: RAH 10:53
PROVIDERS: ATTEND Internal Medicine Nephrology
DX: R07.9 Chest pain, unspecified (principal); M47.814 Spondylosis without myelopathy or radiculopathy, thoracic region
CPT/HCPCS: 71045; 93005

== ENCOUNTER → 2024-01-29 | Outpatient (CLI) | payer MEDICARE | END | disposition home or self-care (01) | LOC: RAH 09:20 | PROVIDERS: ATTEND Internal Medicine Nephrology | DX: M47.812 Spondylosis without myelopathy or radiculopathy, cervical region (principal); M48.02 Spinal stenosis, cervical region; M25.551 Pain in right hip; M25.562 Pain in left knee; M54.2 Cervicalgia | CPT/HCPCS: 72040; 73502; 73562 ==

== ENCOUNTER → 2024-06-03 | Outpatient (CLI) | payer MEDICARE ==
--- NOTE | 2024-06-04 09:56 | HMCSR ---
APPROVED REPORT EXAM: Two-dimensional and M-mode echocardiogram with Doppler and color Doppler. INDICATION ICD: R06.00 Dyspnea 2D Dimensions RVDd3.6 cmLVEF(%)67.9 (>50%)LVED Vol(simp.)97.0 mL IVSd1.0 (0.7-1.1cm)FS(%)38 %LVES Vol(simp.)34.0 mL LVDd4.5 (3.8-5.6cm)Ao Root(2D)3.0 (2.0-3.7cm)LVEF(%, simp.)65 % PWd1.0 (0.7-1.1cm)LVOT diam1.8 (1.8-2.4cm)LA ESV INDEX (BP)45.55 mL/m2 LVDs2.8 (2.5-4.0cm)IVC diam2.0 cm Aortic Valve AoV Vmax1.7 m/Jami Peak GR10.9 mmHgLVOT Vmax1.5 m/s AoV VTI0.4 mAo Mean GR6.1 mmHgLVOT VTI0.37 m WALDO (VMAX)2.2 cm2AVA (VTI) 2.2 cm2 Mitral Valve MV E Diar748.7 cm/sDECEL Qhpa302 ms MV A Vmax78.1 cm/sP 1/2 T73 ms E/A ratio1.3MVA (PHT)3.0 cm2 MR Max PG98 mmHg TDI E/E' Hygyqb22.7E/E' Hurzkiq93.9 Pulmonary Valve PV Vmax1.0 m/sPV VTI0.29 mPV Mean GR3 mmHg PV Peak GR4.4 mmHgPI End Sherry. Andrew 1.2 cm/s Tricuspid Valve TR Vmax3.0 m/sRAP (EST) 8 miBuRCZG77.6 mmHg TR Peak GR35.6 mmHg Left Ventricle Left ventricular cavity size is normal. There is normal LV segmental wall motion. There is normal lef t ventricular wall thickness. LVEF is 65-70%. No left ventricle thrombus noted on this study. Grade 2 diastolic dysfunction. Right Ventricle The right ventricle is normal size. The right ventricular systolic function is normal. Atria The left atrium is moderately dilated. The right atrium is moderately dilated. Aortic Valve Aortic valve is trileaflet. Aortic valve leaflets are sclerotic but open well. Trace aortic regurgita tion. There is no aortic valvular stenosis. Mitral Valve Mitral valve leaflets are mildly sclerotic but open well. Mitral annular calcification is mild. Jewell l regurgitation is trace to mild. There is no mitral valve stenosis. Tricuspid Valve The tricuspid valve leaflets appear normal. There is mild to moderate tricuspid regurgitation. Right ventricular systolic pressure is estimated at 40-50 mmHg. Pulmonic Valve The pulmonic valve leaflets are thin and pliable; valve motion is normal. There is trace pulmonic justin vular regurgitation. Great Vessels The aortic root is normal in size. IVC is dilated and collapses >50% with inspiration. Pericardium No pericardial effusion. Conclusion Left ventricular cavity size is normal. There is normal left ventricular wall thickness. LVEF is 65-70%. Grade 2 diastolic dysfunction. The right ventricle is normal size. The left atrium is moderately dilated. The right atrium is moderately dilated. Aortic valve is trileaflet. Aortic valve leaflets are sclerotic but open well. Trace aortic regurgitation. Mitral valve leaflets are mildly sclerotic but open well. Mitral annular calcification is mild. Mitral regurgitation is trace to mild. There is mild to moderate tricuspid regurgitation. Right ventricular systolic pressure is estimated at 40-50 mmHg. There is trace pulmonic valvular regurgitation. The aortic root is normal in size. IVC is dilated and collapses >50% with inspiration. No pericardial effusion.
== END | disposition home or self-care (01) ==
LOC: SHCH 15:45
PROVIDERS: ATTEND Internal Medicine Cardiovascular Disease
DX: I08.3 Combined rheumatic disorders of mitral, aortic and tricuspid valves (principal); R06.00 Dyspnea, unspecified
CPT/HCPCS: 93306

== ENCOUNTER → 2024-06-11 | Outpatient (CLI) | payer MEDICARE ==
--- NOTE | 2024-06-11 15:40 | HMCIMG ---
KNEE 3VWS LT HISTORY: Left knee pain COMPARISON: None TECHNIQUE: 3 images of left knee were obtained. FINDINGS: There is no acute displaced fracture or dislocation. Degenerative changes are seen. IMPRESSION: 1. Findings as described above.
== END | disposition home or self-care (01) ==
LOC: RAH 14:56
PROVIDERS: ATTEND Internal Medicine Nephrology
DX: M17.12 Unilateral primary osteoarthritis, left knee (principal); M25.562 Pain in left knee
CPT/HCPCS: 73562

== ENCOUNTER → 2024-10-07 | Outpatient (CLI) | payer MEDICARE ==
--- NOTE | 2024-10-07 10:09 | HMCIMG ---
Exam Type: MAMMO SCREENING BILATERAL Clinical Information: ANNUAL SCREENING Comparison: October 06, 2023 Technique: Mammogram with CAD was performed with CC and MLO projections. CAD shows no worrisome regions. FINDINGS: The breasts are heterogeneously dense, which may obscure small masses. No dominant mass or suspicious microcalcification identified. There is no nipple retraction or skin thickening. Benign-appearing calcifications are seen. CAD shows no worrisome regions. IMPRESSION: 1. No mammographic signs of malignancy. 2. Routine follow-up recommended. CATEGORY 2: BENIGN FINDINGS Note: A negative x-ray should not delay biopsy if a dominant or clinically suspicious mass is present, since 8-10% of cancers are not identified by mammography. Dense breasts may obscure an underlying neoplasm.
== END | disposition home or self-care (01) ==
LOC: RAH 08:28
PROVIDERS: ATTEND Internal Medicine Nephrology
DX: Z12.31 Encounter for screening mammogram for malignant neoplasm of breast (principal); R92.333 Mammographic heterogeneous density, bilateral breasts
CPT/HCPCS: 77067

== ENCOUNTER 2025-02-08 17:09 | Emergency (ER) | payer MEDICARE ==
[~2025-02-08] VITALS: Ht 144.8 cm; Wt 81.6 kg
[~2025-02-08 17:09] MED LIST changes: -LATA2.5D14 OP; +LATA2.5D7 OP
--- NOTE | 2025-02-08 17:14 | ERN ---
ED Note History of Present Illness Stated Complaint: ABDOMINAL PAIN Chief Complaint: Abdominal Pain Time Seen by MD: 17:12 Time Seen by Midlevel: 17:12 Dictation: Ms. Dennison is a 74 year old female with history of hypertension, hyperlipidemia, obesity, asthma, and gastritis who presented to the Emergency Department this evening for evaluation of abdominal pain. She reports right lower quadrant pain which began some time on Friday. She states pain is worse today with pain now radiating to the right flank. She denies history of kidney stones. She states she had "normal" BM x 2 today. She denies fever, chills, shortness of breath, cough, chest pain, palpitations, edema, nausea, vomiting, hematemesis, constipation, diarrhea, melena, hematochezia, dysuria, hematuria, headache, dizziness, or focal weakness/paresthesia. PCP: Dr. Faisal Langston Allergies: Coded Allergies: No Allergy Information Available (Verified Allergy, Unknown, 08/13/22) No Known Drug Allergies (Unverified Allergy, Unknown, 01/04/18) joaquina (Unverified Allergy, Unknown, SWOLLEN TONGUE, 01/04/18) Emergency Care WAREHOUSE UNLOADER: None Home Meds Active Scripts Dicyclomine HCl (Bentyl) 10 Mg Cap, 1 CAP PO Q6HPRN PRN for irritable bowel symptoms, #10 CAP 0 Refills Prov:MARKY KEYS TOOLROOM HELPER 02/08/25 Metoprolol Tartrate (Metoprolol Tartrate) 100 Mg Tablet, 100 MG PO BID, #60 TAB Prov:ONEIDA CARTY TOOLROOM HELPER 08/07/23 Reported Medications Latanoprost (Latanoprost) 0.005 % Drops, 2.5 ML OP HS, DROP 06/24/23 Hydralazine HCl (Apresoline) 25 Mg Tab, 1 TAB PO BID 06/24/23 Aspirin (Aspirin EC) 81 Mg Tablet.dr, 81 MG PO AM, TAB 01/13/23 Amlodipine Besylate (Amlodipine Besylate) 5 Mg Tablet, 5 MG PO AM, TAB 01/13/23 Omeprazole (Omeprazole) 40 Mg Capsule.dr, 40 MG PO AM, CAP 01/13/23 Codeine Phosphate/Guaifenesin (Guaifen-Codeine 200-20 mg/10Ml) 10 Ml Liquid, 10 ML PO Q6HPRN 12/18/19 Calcium Carbonate/Vitamin D3 (Calcium 600 + Vit D3 Caplet) 1 Each Tablet, 1 EACH PO DAILY, TAB 01/12/18 Fish Oil/Borage/Flax/Om3,6,9#1 ([place] 3-6-9 Complex Softgel) 400 Mg Capsule, 1600 MG PO DAILY, CAP 01/12/18 Cholecalciferol (Vitamin D3) (Vitamin D-3) 2,000 Unit Capsule, 5000 UNIT PO DAILY, CAP 01/12/18 Albuterol Sulfate (Proair Hfa) 8.5 Gm Hfa.aer.ad, 90 MCG IH Q6HPRN PRN for WHEEZING 01/12/18 Losartan Potassium (Cozaar) 50 Mg Tablet, 50 MG PO BID, TAB 01/05/18 Metoprolol Succinate (Metoprolol Succinate) 50 Mg Tab.er.24h, 50 MG PO BID, TAB 01/05/18 Past Medical History Past Medical History: Asthma, High Cholesterol, Hypertension, Other Additional Past Medical Hx: HX OF GASTRITIS Surgical History: Hysterectomy, Cholecystectomy PSYCH History: no pertinent psych hx Family History: Negative Social History: Negative History: Not Applicable RN Note Reviewed/Agreed w/PFSH: Yes Review of System Dictation REVIEW OF SYSTEMS: CONSTITUTIONAL: Patient denies fevers, chills, sweats and weight changes. EYES: Patient denies any visual symptoms. EARS, NOSE, AND THROAT: No difficulties with hearing. No symptoms of rhinitis or sore throat. CARDIOVASCULAR: Patient denies chest pains, palpitations, orthopnea and paroxysmal nocturnal dyspnea. RESPIRATORY: No dyspnea on exertion, no wheezing or cough. GI: No nausea, vomiting, diarrhea, constipation, hematochezia or melena. Reports right lower quadrant abdominal pain : Denies hematuria, frequency, dysuria. Reports right flank pain. Denies history of kidney stones. NEUROLOGIC: No chronic headaches, no seizures. Patient denies numbness, tingling or weakness. PSYCHIATRIC: Patient denies problems with mood disturbance. No problems with anxiety. ENDOCRINE: No excessive urination or excessive thirst. DERMATOLOGIC: Patient denies any rashes or skin changes. Initial Vital Sign VS Vital Signs Date Time Temp Pulse Resp B/P (MAP) Pulse Ox O2 Delivery O2 Flow Rate FiO2 02/08/25 17:11 97.2 60 16 181/64 97 Room Air 0 02/08/25 17:14 21 Physical Exam Dictation Vital signs: Reviewed. Afebrile. Constitutional: No acute distress. Non-toxic appearing. Head/Face: Normocephalic, atraumatic. Eyes: Periorbital areas with no swelling, redness, or edema. Lids and lashes are normal. Conjunctival injection is absent. Sclera anicteric. Pupils equal, round, reactive to light. ENT: Pinnas intact and no signs of trauma or erythema. Ear canals clear and no discharge. TMs no erythema. No nasal discharge or bleeding noted. Oropharynx with no exudate, redness, swelling, masses, exudates, or evidence of obstruction. Uvula midline. Mucous membranes moist. Neck: Trachea midline, no masses palpated, and no cervical lymphadenopathy. No swelling. Supple, full range of motion. Chest/Axilla: No tenderness, no crepitus, no paradoxical movement, no retractions. Cardiovascular: Regular rate, regular rhythm, no murmur, no gallops. Symmetric pulses. No peripheral edema. Elevated blood pressure reading of 181/64 Respiratory: Respirations even and unlabored. Lung sounds clear; no wheezes, r ales or rhonchi. Room air spo2 97% Gastrointestinal: Inspection is normal. No distention is appreciated. Bowel sounds are normal. No mass or organomegaly . There is no tenderness. No rebound. No rigidity. No voluntary or involuntary guarding. No Delarosa's sign. Neurological: Normal speech, gross motor function intact, gross sensory function intact. No focal weakness/Paresthesia. Musculoskeletal/Extremities: All extremities have full range of motion, no pain or tenderness on palpation. Symmetric pulses. Integumentary: Intact. Skin is normal color, warm and dry. Cap refill less than 3 seconds. Results (Laboratory/Radiology) Laboratory/Radiology Laboratory Tests Test 02/08/25 17:32 White Blood Count 8.7 K/uL (4.8-10.8) Red Blood Count 3.71 MIL/uL (4.00-5.50) L Hemoglobin 11.1 g/dL (12.0-16.0) L Hematocrit 35.2 % (36-48) L Mean Corpuscular Volume 94.9 fL (79-99) Mean Corpuscular Hemoglobin 29.9 pg (27.0-33.0) Mean Corpuscular Hemoglobin Concent 31.5 g/dL (32.0-36.0) L Red Cell Distribution Width 13.3 % (11.0-15.5) Platelet Count 269 K/uL (130-400) Mean Platelet Volume 9.8 fL (7.5-10.5) Immature Granulocyte % (Auto) 0.2 % (0-1) Neutrophils (%) (Auto) 57.3 % (40.0-77.0) Lymphocytes (%) (Auto) 32.6 % (21.0-51.0) Monocytes (%) (Auto) 7.3 % (3.0-13.0) Eosinophils (%) (Auto) 1.6 % (0.0-8.0) Basophils (%) (Auto) 1.0 % (0.0-5.0) Neutrophils # (Auto) 5.0 K/uL (1.8-7.7) Lymphocytes # (Auto) 2.9 K/uL (1.0-4.8) Monocytes # (Auto) 0.6 K/uL (0.1-1.0) Eosinophils # (Auto) 0.14 K/uL (0.00-0.70) Basophils # (Auto) 0.09 K/uL (0.00-0.20) Absolute Immature Granulocyte (auto 0.02 K/uL (0-1) Nucleated Red Blood Cells 0.0 % (0.0-0.19) Urine Color COLORLESS (YELLOW) Urine Appearance CLEAR (CLEAR) Urine pH 7.0 (5.0-8.0) Urine Specific [place] 1.004 (1.001-1.031) Urine Protein NEGATIVE mg/dL (NEGATIVE) Urine Glucose (UA) NEGATIVE mg/dL (NEGATIVE) Urine Ketones NEGATIVE mg/dL (NEGATIVE) Urine Occult Blood NEGATIVE (NEGATIVE) Urine Nitrate NEGATIVE (NEGATIVE) Urine Bilirubin NEGATIVE mg/dL (NEGATIVE) Urine Urobilinogen 0.2 mg/dL (0.2-1.0) Urine Leukocyte Esterase NEGATIVE Shelly/uL Sodium Level 139 mmol/L (136-145) Potassium Level 4.1 mmol/L (3.5-5.1) Chloride Level 102 mmol/L (101-111) Carbon Dioxide Level 28 mmol/L (21-32) Blood Urea Nitrogen 19 mg/dL (7-18) H Creatinine 0.8 mg/dL (0.5-1.0) Glomerular Filtration Rate Calc 77 mL/min (>90) Random Glucose 85 mg/dL (70-105) Total Calcium 9.1 mg/dL (8.5-10.1) Total Bilirubin 0.3 mg/dL (0.2-1.0) Direct Bilirubin 0.1 mg/dL (0.0-0.3) Aspartate Amino Transf (AST/SGOT) 19 U/L (10-37) Alanine Aminotransferase (ALT/SGPT) 25 U/L (12-78) Alkaline Phosphatase 78 U/L (50-136) Total Protein 7.7 g/dL (6.0-8.3) Albumin 3.7 g/dL (3.5-5.0) Lipase 32 U/L (16-77) Labs Reviewed?: Yes CT Scan Comment: PATIENT: PAMELA DENNISON MR#: [id number] : 1950 SEX: F AGE: 74 LOCATION: [facility] ORDER 22 STATUS: [facility] REPORT#: [id number] SERVICE 22 REASON: RLQ pain, right flank pain ORDERING PHYSICIAN: MARKY KEYS PROCEDURE: ABD PEL W - CT ABDOMEN/PELVIS W/CONTRAST EXAM: CT Abdomen and Pelvis with IV contrast CLINICAL HISTORY: RLQ pain, right flank pain TECHNIQUE: Axial computed tomography images of the abdomen and pelvis with intravenous contrast. CONTRAST: with intravenous contrast. COMPARISON: None provided. FINDINGS: LUNG BASES: Mild bibasilar atelectasis. There are a few solid nodules in both lower lobes, the largest measuring 4.3 mm in the left lower lobe. 5.5 mm ground-glass nodule in the left lower lobe. Recommend contrast-enhanced CT of the chest. The rest of the lung bases appear clear. No pleural effusions are seen. LIVER: Unremarkable. GALLBLADDER AND BILE DUCTS: The gallbladder is surgically absent. No biliary ductal dilatation is evident. PANCREAS: Unremarkable. SPLEEN: Unremarkable. ADRENAL GLANDS: Unremarkable. KIDNEYS, URETERS, AND BLADDER: 0.5 cm cyst within the interpolar region of the right kidney. The kidneys appear within normal limits. There is no hydronephrosis or hydroureter. No urinary calculi are seen. STOMACH AND BOWEL: Colonic diverticulosis without diverticulitis. Unremarkable appearance of the stomach and the rest of the bowel. No evidence of bowel obstruction. No evidence suggesting enteritis or colitis. APPENDIX: No evidence of acute appendicitis on CT examination. PERITONEUM: No free fluid. No free air. LYMPH NODES: No lymphadenopathy is evident. REPRODUCTIVE: The uterus is surgically absent. No adnexal lesion. VASCULATURE: Mild atherosclerotic wall calcifications in the abdominal aorta. No evidence of abdominal aortic aneurysm. BONES: Moderate multilevel degenerative changes in the spine. No aggressive appearing osseous lesion. No acute osseous pathology evident. IMPRESSION: No acute intra-abdominal or pelvic abnormality. Colonic diverticulosis without diverticulitis. /[place] DICTATED BY: SD SETH MD DATE: 02/08/252125 ELECTRONICALLY SIGNED BY: SD SETH MD DATE: 02/08/252125 ED Course ED Course Orders Procedure Category Date Status Time Urinalysis Profile LAB 02/08/25 Complete 17:14 Cbc With Differential LAB 02/08/25 Complete 17:14 Basic Metabolic Panel LAB 02/08/25 Complete 17:14 Lipase LAB 02/08/25 Complete 17:14 Hepatic Function Panel LAB 02/08/25 Complete 17:14 Ct Abdomen/Pelvis CT 02/08/25 Resulted W/Contrast 18:23 0.9% Nacl 500ml PHA 02/08/25 Complete Iv.Soln (Ns 500ml 18:30 Ketorolac PHA 02/08/25 Complete Tromethamine 15mg/Ml 18:30 Iohexol (Omnipaque) PHA 02/08/25 Complete 18:35 Clonidine Hcl 0.1 Mg PHA 02/08/25 Complete Tablet (Catapres 0. 21:00 Current Medications Medications (Trade) Dose Ordered Sig/Dwain Route PRN Reason Start Time Stop Time Status Last Admin Dose Admin Clonidine HCl (CATApres 0.1 mg TAB) 0.1 mg ONCE ONCE PO 02/08/25 21:00 02/08/25 21:01 DC Iohexol (Omnipaque) 75 ml STK-MED ONCE IV 02/08/25 18:35 02/08/25 18:35 DC Ketorolac Tromethamine (toRADol) 15 mg ONCE ONCE IV 02/08/25 18:30 02/08/25 18:31 DC 02/08/25 18:50 Sodium Chloride 500 ml @ 0 mls/hr ONCE ONCE IV 02/08/25 18:30 02/08/25 18:31 DC 02/08/25 18:50 Vital Signs Date Time Temp Pulse Resp B/P (MAP) Pulse Ox O2 Delivery O2 Flow Rate FiO2 02/08/25 17:59 98.1 60 17 186/85 95 Room Air* 0 21 02/08/25 17:14 97.2 60 16 181/64 97 Room Air* 0 21 02/08/25 17:11 97.2 60 16 181/64 97 Room Air 0 Upon arrival to the ED noted elevated blood pressure reading 181/64 Laboratory findings as noted below. No elevation of WBC. H/H stable 11.1/35.2, BUN 19, and BUN/cr ratio 24. UA clear; no blood, leukocyte esterase, bacteria, or nitrates.. CT scan of the abdomen/pelvis revealed colonic diverticulosis without diverticulitis. While in the ED she received dose Toradol as well NS 500ml IV as bolus. BP decreased; 164/72. Findings were discussed with patient and and all questions answered. Medical Decision Making MDM MDM: Differential diagnosis: UTI, kidney stone, appendicitis, diverticulitis Rationale: Tests considered and ordered secondary to shared decision making include: LAB, CT Previous outside records reviewed: Old ER visits. Risk of complication and/or morbidity or mortality of patient management: None Medications-Per medication reconciliation Need for hospitalization: Patient does not meet criteria for hospitalization. Need for emergency major/minor surgery: No There are no social concerns with this patient. Prescription drug management: Bentyl Prescriptions will include symptomatic care Patient's prior external medical records from other ER visits were reviewed by me as indicated. Prior testing and results from previous visits were reviewed. Prior tests were taken into account with medical decision making and resource utilization, independent historian/historians were used to obtain complete medical history. I independently interpreted the test that were performed, results were reviewed by me and considered findings on radiology if ordered. Medical management and examination interpretation discussions were had by me with other qualified healthcare professionals as indicated for the patient's care. DX & DISP Disposition: Discharge Departure Impression: Primary Impression: Abdominal pain Additional Impressions: Dehydration, Hypertension Condition: Stable Scripts Dicyclomine HCl (Bentyl) 10 Mg Cap 1 CAP PO Q6HPRN PRN for irritable bowel symptoms, #10 CAP 0 Refills Prov: LETICIAMARKY LOU Artie CARBALLO 02/08/25 Additional Instructions: Your evaluation today did not show any acute findings such as appendicitis, kidney stones, or infection your abdominal pain is likely due to mild irritation or intestinal spasm, possibly worsened by mild dehydration. Drink small, frequent sips of water or electrolyte drinks. Avoid alcohol, caffeine, or soda until fully rehydrated. Eat a bland diet for the next24 hours (soups, toast, rice, bananas, applesauce,. Gradually resume regular meals as tolerated. Rest and avoid heavy lifting or strenuous activity until pain improved. Continue y our omeprazole as prescribed you may take [id number] Tylenol as needed for discomfort. You should avoid ibuprofen Naprosyn, or aspirin. If pain persists you may take Bentyl 10 mg every 6 hours as needed. You will need to follow up with your primary care provider within the next 3-5 days to review her CT and lab results, recheck blood pressure and hydration status, and consider GI referral if symptoms persist or worsen. You should return immediately to the emergency department if you develop worsening or severe abdominal pain, fever/chills/vomiting, bloody or black stools, inability to eat or drink, dizziness/fainting/or confusion. Referrals: FAISAL MARTINEZ MD (PCP) Time of Disposition: 20:52 MARKY KEYS Feb 08, 2025 17:14
[2025-02-08 17:44] LABS: IMMATURE GRANULOCYTE ABSOLUTE 0.02 K/uL (0-1); NUCLEATED RED BLOOD CELLS 0.0 % (0.0-0.19); PLATELET COUNT (AUTO) 269 K/uL (130-400); RED BLOOD CELL COUNT(AUTO) 3.71 MIL/uL (4.00-5.50); RED CELL DISTRIBUTION WIDTH 13.3 % (11.0-15.5); WHITE BLOOD COUNT (AUTO) 8.7 K/uL (4.8-10.8)
[2025-02-08 17:48] LABS: APPEARANCE,URINE CLEAR (CLEAR); GLUCOSE, URINE (UA) NEGATIVE (NEGATIVE); LEUKOCYTE ESTERASE ,URINE NEGATIVE Leu/uL (NEGATIVE); NITRATE,URINE NEGATIVE (NEGATIVE); OCCULT BLOOD,URINE NEGATIVE (NEGATIVE)
[2025-02-08 17:50] LABS: ADD UA MICROSCOPIC NO
[2025-02-08 17:52] LABS: CREATININE 0.8 mg/dL (0.5-1.0); GLOMERULAR FILTR. RATE CALC 77.0 mL/min (>90); GLUCOSE,RANDOM 85.0 mg/dL (70-105); SODIUM SERUM 139.0 mmol/L (136-145); UREA NITROGEN, BLOOD 19.0 mg/dL (7-18)
[2025-02-08 17:56] LABS: ASPARTATE AMINOTRANSFERASE 19.0 U/L (10-37); TOTAL PROTEIN, SERUM 7.7 g/dL (6.0-8.3)
[2025-02-08] MEDS ORDERED: IOHEXOL-350 75 ML VIAL IV ONE (18:35)
[2025-02-08] MEDS: 0.9% NACL 500ML IV.SOLN 500 ML IV ONE (18:50)
--- NOTE | 2025-02-08 20:27 | HMCIMG ---
EXAM: CT Abdomen and Pelvis with IV contrast CLINICAL HISTORY: RLQ pain, right flank pain TECHNIQUE: Axial computed tomography images of the abdomen and pelvis with intravenous contrast. CONTRAST: with intravenous contrast. COMPARISON: None provided. FINDINGS: LUNG BASES: Mild bibasilar atelectasis. There are a few solid nodules in both lower lobes, the largest measuring 4.3 mm in the left lower lobe. 5.5 mm ground-glass nodule in the left lower lobe. Recommend contrast-enhanced CT of the chest. The rest of the lung bases appear clear. No pleural effusions are seen. LIVER: Unremarkable. GALLBLADDER AND BILE DUCTS: The gallbladder is surgically absent. No biliary ductal dilatation is evident. PANCREAS: Unremarkable. SPLEEN: Unremarkable. ADRENAL GLANDS: Unremarkable. KIDNEYS, URETERS, AND BLADDER: 0.5 cm cyst within the interpolar region of the right kidney. The kidneys appear within normal limits. There is no hydronephrosis or hydroureter. No urinary calculi are seen. STOMACH AND BOWEL: Colonic diverticulosis without diverticulitis. Unremarkable appearance of the stomach and the rest of the bowel. No evidence of bowel obstruction. No evidence suggesting enteritis or colitis. APPENDIX: No evidence of acute appendicitis on CT examination. PERITONEUM: No free fluid. No free air. LYMPH NODES: No lymphadenopathy is evident. REPRODUCTIVE: The uterus is surgically absent. No adnexal lesion. VASCULATURE: Mild atherosclerotic wall calcifications in the abdominal aorta. No evidence of abdominal aortic aneurysm. BONES: Moderate multilevel degenerative changes in the spine. No aggressive appearing osseous lesion. No acute osseous pathology evident. IMPRESSION: No acute intra-abdominal or pelvic abnormality. Colonic diverticulosis without diverticulitis. /[place]
[2025-02-08] MEDS ORDERED: DICY10 PO (20:53)
[2025-02-08 21:11] VITALS: BP 164/55; PULSE 53; RESP 18; TEMP 98.3; O2SAT 97
[2025-02-11] MEDS ORDERED: 0.9%NACL 1000ML 1,000 ML IV SCH (17:30)
== END 2025-02-08 21:29 | disposition home or self-care (01) ==
LOC: EDH 17:09
DX: K57.30 Diverticulosis of large intestine without perforation or abscess without bleeding (principal); E86.0 Dehydration; I10 Essential (primary) hypertension; E78.00 Pure hypercholesterolemia, unspecified; J45.909 Unspecified asthma, uncomplicated; Z79.899 Other long term (current) drug therapy; Z87.19 Personal history of other diseases of the digestive system; Z90.49 Acquired absence of other specified parts of digestive tract; Z90.710 Acquired absence of both cervix and uterus
CPT/HCPCS: 99285; 74177; 96374; 80076; 80048; 83690; 85025; 81003; 36415; J1885; J7040; Q9967

== ENCOUNTER 2025-02-11 17:10 | Emergency (ER) | payer MEDICARE ==
[~2025-02-11] VITALS: Ht 144.8 cm; Wt 81.6 kg
[~2025-02-11 17:10] MED LIST changes: +DICY10 PO
--- NOTE | 2025-02-11 17:20 | ERN ---
ED Note History of Present Illness Stated Complaint: ABDOMINAL PAIN Chief Complaint: Abdominal Pain Time Seen by MD: 17:12 Dictation: PATIENT IS A 74-YEAR-OLD FEMALE COMING IN TODAY WITH LEFT FLANK PAIN THAT RADIATES TO LEFT LOWER QUADRANT ONSET WAS A WEEK AGO. NO FEVER NO CHILLS NO NAUSEA VOMITING. SHE WAS SEEN AT [facility] [place], [place] SEVERAL DAYS AGO AND HAD LABS DONE TO INCLUDE CT THAT HAD NO FINDINGS AND WAS TOLD TO SEE HER DOCTOR. SHE CALLED HER DOCTOR TODAY WHO ADVISED HER TO COME BACK TO THE EMERGENCY ROOM FOR FURTHER EVALUATION AND TREATMENT. NO CHEST PAIN NO SOB NO JAW PAIN NO ARM PAIN Allergies: Coded Allergies: No Allergy Information Available (Verified Allergy, Unknown, 08/13/22) No Known Drug Allergies (Unverified Allergy, Unknown, 01/04/18) joaquina (Unverified Allergy, Unknown, SWOLLEN TONGUE, 01/04/18) Home Meds Active Scripts Dicyclomine HCl (Bentyl) 10 Mg Cap, 1 CAP PO Q6HPRN PRN for irritable bowel symptoms, #10 CAP 0 Refills Prov:MARKY KEYS INFORMATION ARCHITECT 02/08/25 Metoprolol Tartrate (Metoprolol Tartrate) 100 Mg Tablet, 100 MG PO BID, #60 TAB Prov:ONEIDA CARTY INFORMATION ARCHITECT 08/07/23 Reported Medications Latanoprost (Latanoprost) 0.005 % Drops, 2.5 ML OP HS, DROP 06/24/23 Hydralazine HCl (Apresoline) 25 Mg Tab, 1 TAB PO BID 06/24/23 Aspirin (Aspirin EC) 81 Mg Tablet.dr, 81 MG PO AM, TAB 01/13/23 Amlodipine Besylate (Amlodipine Besylate) 5 Mg Tablet, 5 MG PO AM, TAB 01/13/23 Omeprazole (Omeprazole) 40 Mg Capsule.dr, 40 MG PO AM, CAP 01/13/23 Codeine Phosphate/Guaifenesin (Guaifen-Codeine 200-20 mg/10Ml) 10 Ml Liquid, 10 ML PO Q6HPRN 12/18/19 Calcium Carbonate/Vitamin D3 (Calcium 600 + Vit D3 Caplet) 1 Each Tablet, 1 EACH PO DAILY, TAB 01/12/18 Fish Oil/Borage/Flax/Om3,6,9#1 ([place] 3-6-9 Complex Softgel) 400 Mg Capsule, 1600 MG PO DAILY, CAP 01/12/18 Cholecalciferol (Vitamin D3) (Vitamin D-3) 2,000 Unit Capsule, 5000 UNIT PO DAILY, CAP 01/12/18 Albuterol Sulfate (Proair Hfa) 8.5 Gm Hfa.aer.ad, 90 MCG IH Q6HPRN PRN for WHEEZING 01/12/18 Losartan Potassium (Cozaar) 50 Mg Tablet, 50 MG PO BID, TAB 01/05/18 Metoprolol Succinate (Metoprolol Succinate) 50 Mg Tab.er.24h, 50 MG PO BID, TAB 01/05/18 Past Medical History Past Medical History: Asthma, Hypertension Additional Past Medical Hx: HX OF GASTRITIS Surgical History: Hysterectomy, Cholecystectomy Family History: Negative Social History: Negative History: Not Applicable RN Note Reviewed/Agreed w/PFSH: Yes Review of System Dictation CONSTITUTIONAL: NEGATIVE EXCEPT FOR HPI HEAD/FACE: NEGATIVE EXCEPT FOR HPI EENT: NEGATIVE EXCEPT FOR HPI RESPIRATORY: NEGATIVE EXCEPT FOR HPI GASTROINTESTINAL/ABDOMINAL: NEGATIVE EXCEPT FOR HPI LEFT FLANK PAIN THAT RADIATES TO LEFT LOWER QUADRANT GENITOURINARY: NEGATIVE EXCEPT FOR HPI MUSCULOSKELETAL: NEGATIVE EXCEPT FOR HPI INTEGUMENTARY: NEGATIVE EXCEPT FOR HPI NEUROLOGICAL/PSYCH: NEGATIVE EXCEPT FOR HPI HEMATOLOGIC/LYMPHATIC: NEGATIVE EXCEPT FOR HPI ALL SYSTEMS NEGATIVE, EXCEPT NOTED ABOVE. 13 POINT REVIEW OF SYSTEMS ASSESSED AND ALL NEGATIVE EXCEPT FOR ABOVE. Initial Vital Sign VS Vital Signs Date Time Temp Pulse Resp B/P (MAP) Pulse Ox O2 Delivery O2 Flow Rate FiO2 02/11/25 17:11 98.2 61 20 159/67 98 0 02/11/25 20:46 Room Air* 21 Physical Exam Dictation VITAL SIGNS REVIEWED GENERAL APPEARANCE: ALERT, ORIENTED X 3, MODERATE ACUTE DISTRESS, WELL DEVELOPED, NOURISHED. OBESE HEAD AND FACE: NON-TRAUMATIC. EYES: PERRL, PINK CONJUNCTIVAS, EYELID NO TRAUMA, ANTERIOR CHAMBER WITH ARCUS SENILIS. EARS: PINNAS INTACT AND NO SIGNS OF TRAUMA OR ERYTHEMA EAR CANALS CLEAR AND NO DISCHARGE TM NO ERYTHEMA NOSE: NO DISCHARGE, NO BLEEDING. OROPHARYNX: MOUTH NORMAL, TONGUE PINK, PHARYNX CLEAR,NO ERYTHEMA, TONSILS NO EXUDATES, NO ABSCESSES NOTED, MUCOUS MEMBRANE MOIST NECK: SUPPLE, NON-TENDER, NO THYROMEGALY, NO MASSES, NO JVD, NO BRUITS BREAST:DEFERRED CHEST:NO TENDERNESS, NO CREPITUS, NO PARADOXICAL MOVEMENT, NO RETRACTIONS LUNGS:CLEAR, WELL-VENTILATED, SYMMETRIC, NO RALES, NO WHEEZING, NO RHONCHI, NO STRIDOR, GOOD BREATH SOUNDS BILATERALLY HEART: REGULAR RATE, REGULAR RHYTHM, NO MURMUR, NO GALLOPS VASCULAR: NO PERIPHERAL EDEMA, ABDOMEN: SOFT, POSITIVE BOWEL SOUNDS, NONDISTENDED, NO GUARDING, DIFFUSE LEFT LOWER QUADRANT TENDERNESS WITH PALPATION RECTAL: DEFERRED GENITAL: DEFERRED NEUROLOGICAL: NORMAL SPEECH, MOTOR FUNCTION INTACT, SENSORY FUNCTION INTACT MUSCULOSKELETAL: NECK NONTENDER, FULL RANGE OF MOTION, BACK NONTENDER, FULL RANGE OF MOTION, EXTREMITIES: NONTENDER, FULL RANGE OF MOTION SKIN: COLOR PINK, DRY, NO TURGOR, NO RASH, NO LACERATIONS, NO ABRASIONS, NO CONTUSIONS. LYMPHATIC: DEFERRED Results (Laboratory/Radiology) Laboratory/Radiology Laboratory Tests Test 02/11/25 17:46 02/11/25 20:00 White Blood Count 8.6 K/uL (4.8-10.8) Red Blood Count 3.99 MIL/uL (4.00-5.50) L Hemoglobin 11.7 g/dL (12.0-16.0) L Hematocrit 36.8 % (36-48) Mean Corpuscular Volume 92.2 fL (79-99) Mean Corpuscular Hemoglobin 29.3 pg (27.0-33.0) Mean Corpuscular Hemoglobin Concent 31.8 g/dL (32.0-36.0) L Red Cell Distribution Width 13.3 % (11.0-15.5) Platelet Count 313 K/uL (130-400) Mean Platelet Volume 9.9 fL (7.5-10.5) Immature Granulocyte % (Auto) 0.2 % (0-1) Neutrophils (%) (Auto) 57.5 % (40.0-77.0) Lymphocytes (%) (Auto) 32.3 % (21.0-51.0) Monocytes (%) (Auto) 7.8 % (3.0-13.0) Eosinophils (%) (Auto) 1.5 % (0.0-8.0) Basophils (%) (Auto) 0.7 % (0.0-5.0) Neutrophils # (Auto) 5.0 K/uL (1.8-7.7) Lymphocytes # (Auto) 2.8 K/uL (1.0-4.8) Monocytes # (Auto) 0.7 K/uL (0.1-1.0) Eosinophils # (Auto) 0.13 K/uL (0.00-0.70) Basophils # (Auto) 0.06 K/uL (0.00-0.20) Absolute Immature Granulocyte (auto 0.02 K/uL (0-1) Nucleated Red Blood Cells 0.0 % (0.0-0.19) Sodium Level 138 mmol/L (136-145) Potassium Level 4.2 mmol/L (3.5-5.1) Chloride Level 100 mmol/L (101-111) L Carbon Dioxide Level 28 mmol/L (21-32) Blood Urea Nitrogen 13 mg/dL (7-18) Creatinine 1.0 mg/dL (0.5-1.0) Glomerular Filtration Rate Calc 59 mL/min (>90) Random Glucose 87 mg/dL (70-105) Total Calcium 9.5 mg/dL (8.5-10.1) Total Bilirubin 0.3 mg/dL (0.2-1.0) Direct Bilirubin 0.1 mg/dL (0.0-0.3) Aspartate Amino Transf (AST/SGOT) 22 U/L (10-37) Alanine Aminotransferase (ALT/SGPT) 24 U/L (12-78) Alkaline Phosphatase 75 U/L (50-136) Total Protein 7.9 g/dL (6.0-8.3) Albumin 3.8 g/dL (3.5-5.0) Lipase 20 U/L (16-77) Urine Color COLORLESS (YELLOW) Urine Appearance CLEAR (CLEAR) Urine pH 6.5 (5.0-8.0) Urine Specific [place] 1.006 (1.001-1.031) Urine Protein NEGATIVE mg/dL (NEGATIVE) Urine Glucose (UA) NEGATIVE mg/dL (NEGATIVE) Urine Ketones NEGATIVE mg/dL (NEGATIVE) Urine Occult Blood NEGATIVE (NEGATIVE) Urine Nitrate NEGATIVE (NEGATIVE) Urine Bilirubin NEGATIVE mg/dL (NEGATIVE) Urine Urobilinogen 0.2 mg/dL (0.2-1.0) Urine Leukocyte Esterase NEGATIVE [place]/uL Unremarkable. GALLBLADDER AND BILE DUCTS: The gallbladder is surgically absent. No biliary ductal dilatation is evident. PANCREAS: Unremarkable. SPLEEN: Unremarkable. ADRENAL GLANDS: Unremarkable. KIDNEYS, URETERS, AND BLADDER: The kidneys appear within normal limits. There is no hydronephrosis or hydroureter. No urinary calculi are seen. A small cortical calcification in the interpolar region of the left kidney. STOMACH AND BOWEL: Colonic diverticulosis without diverticulitis. Unremarkable appearance of the stomach and the rest of the bowel. No evidence of bowel obstruction. No evidence suggesting enteritis or colitis. APPENDIX: No evidence of acute appendicitis on CT examination. PERITONEUM: No free fluid. No free air. LYMPH NODES: No lymphadenopathy is evident. REPRODUCTIVE: The uterus is surgically absent. No adnexal lesion. VASCULATURE: Mild atherosclerotic wall calcifications in the abdominal aorta. No evidence of abdominal aortic aneurysm. BONES: Moderate multilevel degenerative changes in the spine. No aggressive appearing osseous lesion. No acute osseous pathology evident. IMPRESSION: No acute intra-abdominal or pelvic abnormality. Colonic diverticulosis without diverticulitis. No interval changes since the prior CT. /[place] Labs Reviewed?: Yes ED Course ED Course Orders Procedure Category Date Status Time Cbc With Differential LAB 02/11/25 Complete 17:17 Urinalysis Profile LAB 02/11/25 Complete 17:17 0.9%Nacl 1000ml (Ns PHA 02/11/25 In Process 1000ml) 17:30 Ketorolac PHA 02/11/25 Complete Tromethamine 30mg/Ml 17:30 Lipase LAB 02/11/25 Complete 17:17 Basic Metabolic Panel LAB 02/11/25 Complete 17:17 Hepatic Function Panel LAB 02/11/25 Complete 17:46 Us Pelvic Non-Ob Comp US 02/11/25 Taken 20:32 Ct Abdomen/Pelvis W/O CT 02/11/25 Resulted Contrast 20:53 Current Medications Medications (Trade) Dose Ordered Sig/Dwain Route PRN Reason Start Time Stop Time Status Last Admin Dose Admin Ketorolac Tromethamine (toRADol) 30 mg ONCE IVP 02/11/25 17:30 02/11/25 21:30 DC 02/11/25 19:51 Sodium Chloride 1,000 ml @ 0 mls/hr ONCE IV 02/11/25 17:30 02/12/25 17:29 02/11/25 19:51 Vital Signs Date Time Temp Pulse Resp B/P (MAP) Pulse Ox O2 Delivery O2 Flow Rate FiO2 02/11/25 20:46 98.8 78 18 165/50 98 Room Air* 0 21 02/11/25 17:11 98.2 61 20 159/67 98 0 2255/PATIENT STATES NO PAIN AT THIS TIME. DISCHARGED HOME WITH BENTYL AND KETOROLAC TOLD TO SEE HER DOCTOR ON FRIDAY WITHOUT FAIL Medical Decision Making MDM MDM: DIFFERENTIAL DIAGNOSIS: DIVERTICULITIS/APPENDICITIS/COLIC GUTTER CHOLELITHIASIS/CHOLELITHIASIS/FATTY LIVER/UTI/ELECTROLYTE IMBALANCE/DEHYDRATION/HERNIA RATIONALE: TESTS CONSIDERED AND ORDERED SECONDARY TO SHARED DECISION MAKING INCLUDE: PREVIOUS OUTSIDE RECORDS REVIEWED: OLD ER VISITS. RISK OF COMPLICATION AND/OR MORBIDITY OR MORTALITY OF PATIENT MANAGEMENT: NONE MEDICATIONS-PER MEDICATION RECONCILIATION NEED FOR HOSPITALIZATION: PATIENT DOES NOT MEET CRITERIA FOR HOSPITALIZATION. NONE NEED FOR EMERGENCY MAJOR/MINOR SURGERY: NO THERE ARE NO SOCIAL CONCERNS WITH THIS PATIENT. PRESCRIPTION DRUG MANAGEMENT BENTYL/I KETOROLAC PRESCRIPTIONS WILL INCLUDE SYMPTOMATIC CARE PATIENT'S PRIOR EXTERNAL MEDICAL RECORDS FROM OTHER ER VISITS WERE REVIEWED BY ME INDICATED. PRIOR TESTING AND RESULTS FROM PREVIOUS VISITS WERE REVIEWED. PRIOR TESTS WERE TAKEN INTO ACCOUNT WITH MEDICAL DECISION MAKING AND RESOURCE UTILIZATION, INDEPENDENT HISTORIAN/HISTORIANS WERE USED TO OBTAIN COMPLETE MEDICAL HISTORY. I INDEPENDENTLY INTERPRETED THE TEST THAT WERE PERFORMED, RESULTS WERE REVIEWED BY ME AND CONSIDERED FINDINGS ON RADIOLOGY IF ORDERED. MEDICAL MANAGEMENT AND EXAMINATION INTERPRETATION DISCUSSIONS WERE HAD BY ME WITH OTHER QUALIFIED HEALTHCARE PROFESSIONALS INDICATED FOR THE PATIENT'S CARE. DX & DISP Disposition: Discharge Departure Impression: Primary Impression: Abdominal pain Additional Impression: Hypochloremia Condition: Stable Scripts Ketorolac Tromethamine (Ketorolac Tromethamine) 10 Mg Tablet 1 TAB PO Q6HPRN PRN for pain for 5 Days, #20 TAB 0 Refills Prov: ONEIDA CARTY INFORMATION ARCHITECT 02/11/25 Dicyclomine HCl (Bentyl) 20 Mg Tab 20 MG PO Q6HPRN PRN for ABDOMINAL PAIN /CRAMPS, #30 TAB Prov: ONEIDA CARTY INFORMATION ARCHITECT 02/11/25 Additional Instructions: FOLLOW-UP WITH PRIMARY CARE PROVIDER IN 1 TO 2 DAYS. TAKE MEDICATIONS DIRECTED HERE IN THE EMERGENCY ROOM. OKAY TO CONTINUE HOME MEDICATIONS UNLESS OTHERWISE DISCUSSED DURING YOUR VISIT IN THE EMERGENCY ROOM TODAY. RETURN TO YOUR NEAREST EMERGENCY ROOM IF SYMPTOMS WORSEN OR IF THERE IS NO IMPROVEMENT. CALL 911 IF YOU NEED IMMEDIATE ASSISTANCE. TAKE TYLENOL OR MOTRIN [id number] NEEDED AND IF NO CONTRAINDICATIONS ARE PRESENT. INCREASE ORAL HYDRATION. A WOUND CULTURE OR URINE CULTURE WAS ORDERED HERE IN THE EMERGENCY ROOM DEPARTMENT PLEASE FOLLOW-UP WITH PRIMARY CARE PROVIDER AND ADVISE THEM TO GET REPEAT PORTS FROM OUR FACILITY. IF YOU HAD ANY MONO WRAP/SPLINTS THAT WERE APPLIED HERE, PLEASE DO NOT REMOVE THEM UNTIL YOU SEE YOUR PRIMARY CARE OR SPECIALTY. DIET AND ACTIVITY TOLERATED. TAKE BENTYL EVERY 6 HOURS FOR THE NEXT TWO DAYS NEEDED FOR PAIN. SEE YOUR PRIMARY CARE DOCTOR FOR FOLLOW UP NEXT WEEK Referrals: FAISAL MARTINEZ MD (PCP) Time of Disposition: 22:55 I have reviewed the case, and I agree with, Diagnosis and Plan ONEIDA CARTY INFORMATION ARCHITECT Feb 11, 2025 17:20
[2025-02-11 17:54] LABS: IMMATURE GRANULOCYTE ABSOLUTE 0.02 K/uL (0-1); NUCLEATED RED BLOOD CELLS 0.0 % (0.0-0.19); PLATELET COUNT (AUTO) 313 K/uL (130-400); RED BLOOD CELL COUNT(AUTO) 3.99 MIL/uL (4.00-5.50); RED CELL DISTRIBUTION WIDTH 13.3 % (11.0-15.5); WHITE BLOOD COUNT (AUTO) 8.6 K/uL (4.8-10.8)
[2025-02-11 18:04] LABS: CREATININE 1.0 mg/dL (0.5-1.0); GLOMERULAR FILTR. RATE CALC 59.0 mL/min (>90); GLUCOSE,RANDOM 87.0 mg/dL (70-105); SODIUM SERUM 138.0 mmol/L (136-145); UREA NITROGEN, BLOOD 13.0 mg/dL (7-18)
[2025-02-11 18:09] LABS: ASPARTATE AMINOTRANSFERASE 22.0 U/L (10-37); TOTAL PROTEIN, SERUM 7.9 g/dL (6.0-8.3)
--- NOTE | 2025-02-11 19:43 | NUR ---
assumed pt care
[2025-02-11] MEDS: 0.9%NACL 1000ML 1,000 ML IV SCH (19:51)
[2025-02-11 20:21] LABS: APPEARANCE,URINE CLEAR (CLEAR); GLUCOSE, URINE (UA) NEGATIVE (NEGATIVE); LEUKOCYTE ESTERASE ,URINE NEGATIVE Leu/uL (NEGATIVE); NITRATE,URINE NEGATIVE (NEGATIVE); OCCULT BLOOD,URINE NEGATIVE (NEGATIVE)
[2025-02-11 20:31] LABS: ADD UA MICROSCOPIC NO
--- NOTE | 2025-02-11 22:26 | HMCIMG ---
EXAM: CT Abdomen and Pelvis without IV contrast CLINICAL HISTORY: Moderate to severe bilateral lower abdominal pain. TECHNIQUE: Axial computed tomography images of the abdomen and pelvis without intravenous contrast. CONTRAST: Without intravenous contrast. COMPARISON: CT dated February 08, 2025. FINDINGS: LUNG BASES: Mild bibasilar atelectasis. There are a few solid nodules in both lower lobes, the largest measuring 4.3 mm in the left lower lobe. 5.5 mm ground-glass nodule in the left lower lobe. No interval changes. Recommend contrast-enhanced CT of the chest. The rest of the lung bases appear clear. No pleural effusions are seen. LIVER: Unremarkable. GALLBLADDER AND BILE DUCTS: The gallbladder is surgically absent. No biliary ductal dilatation is evident. PANCREAS: Unremarkable. SPLEEN: Unremarkable. ADRENAL GLANDS: Unremarkable. KIDNEYS, URETERS, AND BLADDER: The kidneys appear within normal limits. There is no hydronephrosis or hydroureter. No urinary calculi are seen. A small cortical calcification in the interpolar region of the left kidney. STOMACH AND BOWEL: Colonic diverticulosis without diverticulitis. Unremarkable appearance of the stomach and the rest of the bowel. No evidence of bowel obstruction. No evidence suggesting enteritis or colitis. APPENDIX: No evidence of acute appendicitis on CT examination. PERITONEUM: No free fluid. No free air. LYMPH NODES: No lymphadenopathy is evident. REPRODUCTIVE: The uterus is surgically absent. No adnexal lesion. VASCULATURE: Mild atherosclerotic wall calcifications in the abdominal aorta. No evidence of abdominal aortic aneurysm. BONES: Moderate multilevel degenerative changes in the spine. No aggressive appearing osseous lesion. No acute osseous pathology evident. IMPRESSION: No acute intra-abdominal or pelvic abnormality. Colonic diverticulosis without diverticulitis. No interval changes since the prior CT. /[place]
[2025-02-11] MEDS ORDERED: KETO10TA2 PO (22:56)
[2025-02-11] MEDS ORDERED: DICY20TA2 PO (22:56)
--- NOTE | 2025-02-11 23:10 | HMCIMG ---
EXAM: EXAM: COMPLETE TRANSABDOMINAL ULTRASOUND OF PELVIS. CLINICAL HISTORY: Pain. COMPARISON: CT of the abdomen and pelvis without contrast from the same day. TECHNIQUE: Multiple real-time grayscale images of the pelvis were obtained with a transabdominal transducer. FINDINGS: The uterus is not visualized, post-hysterectomy status. Neither the ovaries are visualized, post oophorectomy status. There is no free fluid in the pelvis. IMPRESSION: No significant abnormality. Post-hysterectomy and oophorectomy status. /[place]
[2025-02-11 23:11] VITALS: BP 145/56; PULSE 80; RESP 18; TEMP 98.8; O2SAT 98
== END 2025-02-11 23:12 | disposition home or self-care (01) ==
LOC: EDH 17:10
DX: R10.A2 Flank pain, left side (principal); E87.8 Other disorders of electrolyte and fluid balance, not elsewhere classified; I10 Essential (primary) hypertension; Z90.49 Acquired absence of other specified parts of digestive tract; Z79.899 Other long term (current) drug therapy; Z90.710 Acquired absence of both cervix and uterus
CPT/HCPCS: 99285; 74176; 96374; 76856; 96361; 80076; 80048; 83690; 85025; 81003; 36415; J1885; J7030

== ENCOUNTER → 2025-03-23 | Outpatient (CLI) | payer MEDICARE ==
[~2025-03-23] MED LIST changes: +DICY20TA2 PO; +KETO10TA2 PO
--- NOTE | 2025-03-24 07:17 | HMCIMG ---
EXAM: CT Chest Without IV contrast. CLINICAL HISTORY: Chest pain, unspecified TECHNIQUE: Axial computed tomography images of the chest without intravenous contrast. COMPARISON: None provided. FINDINGS: LUNGS: No infiltrate. PLEURAL SPACES: No evidence of pneumothorax. No pleural effusion. HEART: No cardiomegaly. No significant pericardial effusion. Atherosclerotic calcification of the coronary vessels and aorta are present LYMPH NODES: No lymphadenopathy is evident. UPPER ABDOMEN: The upper abdominal solid organs are unremarkable. surgically absent GB BONES: No acute osseous abnormality. IMPRESSION: No pulmonary infiltrates or pleural effusions. Atherosclerosis and coronary artery disease. /[place]
== END | disposition home or self-care (01) ==
LOC: RAH 14:04
PROVIDERS: ATTEND Internal Medicine Nephrology
DX: I70.0 Atherosclerosis of aorta (principal); R07.9 Chest pain, unspecified; I25.10 Atherosclerotic heart disease of native coronary artery without angina pectoris; Z90.49 Acquired absence of other specified parts of digestive tract
CPT/HCPCS: 71250